=== PATIENT | male | born 1975 | race Caucasian/White ===

== ENCOUNTER 2018-11-15 16:40 | Emergency (ER) | payer MEDICAID ==
[2018-11-15] MEDS ORDERED: Acetaminophen 500 MG Tab PO ONE (17:18)
--- NOTE | 2018-11-15 17:23 | EDM.PDOC ---
ED HPI GENERAL MEDICAL PROBLEM - General Chief Complaint: Headache Stated Complaint: TREE BRANCH FELL AND HIT HIS HEAD Time Seen by Provider: 11/15/18 17:05 Source of Information: Reports: Patient History Limitations: Reports: No Limitations - History of Present Illness INITIAL COMMENTS - FREE TEXT/NARRATIVE: 42 yo male was hit in the head by a tree branch shortly before arrival. No LOC, neck pain, or vomiting, or SANTOS. Did have transient nausea at the time of injury that has resolved. Drove himself to the ER. Is not on any blood thinners. Vision and hearing are normal. Onset: Today Onset Date: 11/15/18 Onset Time: 16:00 Duration: Minutes:, Improving Location: Reports: Head Quality: Reports: Ache Severity: Mild Improves with: Reports: Other (time) Worsens with: Reports: None Context: Reports: Trauma Associated Symptoms: Reports: No Other Symptoms Treatments NEPHROLOGIST: Reports: Other (see below) (none) - Related Data Allergies Allergy/AdvReac Type Severity Reaction Status Date / Time NSAIDS (Non-Steroidal Allergy Seizure Verified 11/15/18 17:19 Anti-Inflamma Penicillins Allergy Bleeding Verified 11/15/18 17:19 Home Meds: Home Meds Albuterol [Ventolin HFA] 11/15/18 [History] ED ROS GENERAL - Review of Systems Review Of Systems: See Below Constitutional: Reports: No Symptoms HEENT: Reports: No Symptoms Respiratory: Reports: No Symptoms Cardiovascular: Reports: No Symptoms Endocrine: Reports: No Symptoms GI/Abdominal: Reports: No Symptoms, Nausea (resolved) : Reports: No Symptoms Musculoskeletal: Denies: Neck Pain Skin: Reports: No Symptoms Neurological: Reports: Headache (mild). Denies: Confusion, Dizziness, Syncope, Difficulty Walking Psychiatric: Reports: No Symptoms ED EXAM, HEAD INJURY - Physical Exam Exam: See Below Exam Limited By: No Limitations General Appearance: Alert, WD/WN, No Apparent Distress Head: Atraumatic, Normocephalic Nexus Criteria: No: Posterior, Midline Cervical Tenderness, Evidence of Intoxication, Altered Level of Consciousness, Focal Neurological Deficit, Painful Distraction Injuries Eyes: Bilateral Eye: EOMI, Normal Inspection, PERRL Ears: Normal External Exam, Normal Canal, Hearing Grossly Normal, Normal TMs Nose: Normal Inspection, No Blood Throat/Mouth: Normal Inspection, Normal Lips, Normal Oropharynx, Normal Voice, No Airway Compromise Neck: Non-Tender, Full Range of Motion, Normal Alignment, Normal Inspection Respiratory: No Respiratory Distress, Lungs Clear, Normal Breath Sounds, No Accessory Muscle Use Cardiovascular: Regular Rate, Rhythm, No Edema GI/Abdominal Exam: Normal Bowel Sounds, Soft, Non-Tender, No Distention Extremities: Normal Inspection, Normal Range of Motion, Non-Tender, No Pedal Edema Neurologic: fiberglass laminator II-XII nml As Tested, No Motor/Sensory Deficits, Alert, Normal Mood/Affect, Oriented x 3 Skin: Normal Color, Warm/Dry - Sarah Coma Score Best Eye Response (Sarah): (4) Open Spontaneously Best Verbal Response ([place]): (5) Oriented Best Motor Response (Sarah): (6) Obeys Commands Sarah Total: 15 Course - Vital Signs Last Recorded V/S: Last Vital Signs Temp 35.9 C 11/15/18 17:08 Pulse 93 11/15/18 17:08 Resp 16 11/15/18 17:08 BP 143/81 H 11/15/18 17:08 Pulse Ox 97 11/15/18 17:08 - Orders/Labs/Meds Orders: Active Orders 24 hr Category Date Time Status Acetaminophen [Tylenol Extra Strength] Med 11/15/18 17:18 Once 1,000 mg PO ONETIME ONE Departure - Departure Time of Disposition: 17:22 Disposition: Home, Self-Care 01 Condition: Good Clinical Impression: Mild concussion Qualifiers: Encounter type: initial encounter Loss of consciousness presence/duration: without LOC Qualified Code(s): S06.0X0A - Concussion without loss of consciousness, initial encounter - Discharge Information *PRESCRIPTION DRUG MONITORING PROGRAM REVIEWED*: No *COPY OF PRESCRIPTION DRUG MONITORING REPORT IN PATIENT MARITZA: No Instructions: Head Injury, Adult Referrals: PCP,None [Primary Care Provider] - Additional Instructions: Acetaminophen as needed. Rest over the weekend. Recheck if worse. - My Orders Last 24 Hours: My Active Orders 11/15/18 17:18 Acetaminophen [Tylenol Extra Strength] 1,000 mg PO ONETIME ONE - Assessment/Plan Last 24 Hours: My Active Orders 11/15/18 17:18 Acetaminophen [Tylenol Extra Strength] 1,000 mg PO ONETIME ONE
== END 2018-11-15 17:36 | disposition home or self-care (01) ==
LOC: JP.ED 16:40
DX: S06.0X0A Concussion without loss of consciousness, initial encounter (principal); R40.2410 Glasgow coma scale score 13-15, unspecified time; Z88.0 Allergy status to penicillin; Z88.8 Allergy status to other drugs, medicaments and biological substances; W22.8XXA Striking against or struck by other objects, initial encounter
CPT/HCPCS: 99283; A9270

== ENCOUNTER 2019-03-20 12:42 | Emergency (ER) | payer MEDICAID ==
--- NOTE | 2019-03-20 13:17 | EDM.PDOC ---
ED HPI GENERAL MEDICAL PROBLEM - General Chief Complaint: Upper Extremity Injury/Pain Stated Complaint: INJURED RT ELBOW Time Seen by Provider: 03/20/19 12:48 Source of Information: Reports: Patient History Limitations: Reports: No Limitations - History of Present Illness INITIAL COMMENTS - FREE TEXT/NARRATIVE: 43-year-old male is a right elbow injury after being struck hard on the medial aspect of the right elbow by a sy that slipped. He has significant pain down the distribution of the ulnar nerve and tingling in his finger. He has what appears to be slight swelling but no deformity of the elbow. He is pale and diaphoretic and very anxious and uncomfortable. No other injury. Onset: Sudden Duration: Hour(s): (Within the last hour) Location: Reports: Upper Extremity, Right Associated Symptoms: Reports: Diaphoresis - Related Data Allergies Allergy/AdvReac Type Severity Reaction Status Date / Time NSAIDS (Non-Steroidal Allergy Seizure Verified 03/20/19 13:22 Anti-Inflamma Penicillins Allergy Bleeding Verified 03/20/19 13:22 Home Meds: Home Meds Albuterol [Ventolin HFA] 11/15/18 [History] Past Medical History - Past Surgical History GI Surgical History: Reports: Hernia, Inguinal Review of Systems - Review of Systems Review Of Systems: See Below Constitutional: Denies: Fever Respiratory: Reports: Other (Hyperventilating from anxiety and pain) Cardiovascular: Denies: Chest Pain, Irregular Heart Rate Skin: Reports: Other (There is a superficial abrasion and bruise on the medial aspect of the right elbow) Neurological: Reports: Paresthesia (Down the ulnar distribution of the right lower arm) ED EXAM, GENERAL - Physical Exam Exam: See Below Exam Limited By: No Limitations General Appearance: Alert, Moderate Distress Head: Atraumatic Respiratory/Chest: No Respiratory Distress Extremities: Other (Exam is otherwise limited to the upper extremities. Patient has an abrasion and slight swelling over the medial aspect of the right elbow. It's very tender to palpation but there is no crepitus or deformity. He is able to move his small finger and feels sensation but it is "tingly".) Course - Vital Signs Last Recorded V/S: Last Vital Signs Temp 97.6 F 03/20/19 13:01 Pulse 79 03/20/19 13:01 Resp 25 H 03/20/19 13:01 BP 109/65 08/02/19 13:01 Pulse Ox 100 03/20/19 13:01 - Orders/Labs/Meds Orders: Active Orders 24 hr Category Date Time Status DME for Discharge [COMM] Stat Oth 03/20/19 13:25 Ordered Meds: Medications Discontinued Medications Generic Name Dose Route Start Last Admin Trade Name Estefanía PRN Reason Stop Dose Admin Acetaminophen 1,000 mg 03/20/19 13:18 03/20/19 13:24 Tylenol Extra Strength PO 03/20/19 13:19 1,000 mg ONETIME ONE Administration Bacitracin 1 dose 03/20/19 13:28 03/20/19 14:25 Bacitracin Oint 1 Gm TOP 03/20/19 13:29 1 dose ONETIME ONE Administration - Radiology Interpretation Free Text/Narrative:: Patient was given 1000 mg of oral Tylenol, an x-ray of the right elbow was obtained which was normal. He was placed in a sling, encouraged to ice the elbow down through the weekend and increase activity as tolerated. Recheck next week if he is still having significant pain or persistent numbness or weakness of the forearm. - Re-Assessments/Exams Free Text/Narrative Re-Assessment/Exam: 03/20/19 13:24 Patient is very sensitive or allergic to numerous pain medications, he can only take "Tylenol". He was given 1000 mg of oral Tylenol and a portable right elbow x-ray was obtained. This appears normal, a small amount of bacitracin was applied to the abrasion along with a bandage and he was placed in a sling. Departure - Departure Time of Disposition: 14:35 Disposition: Home, Self-Care 01 Clinical Impression: Contusion of right elbow Qualifiers: Encounter type: initial encounter Qualified Code(s): S50.01XA - Contusion of right elbow, initial encounter - Discharge Information Instructions: Elbow Contusion Referrals: PCP,None [Primary Care Provider] - Forms: ED Department Discharge Care Plan Goals: Sling on for comfort and continue with a regular dose of Tylenol. Ice to the area may be beneficial. Increase activity as tolerated and recheck early next week if not improving satisfactorily. - My Orders Last 24 Hours: My Active Orders 03/20/19 13:25 DME for Discharge [COMM] Stat - Assessment/Plan Last 24 Hours: My Active Orders 03/20/19 13:25 DME for Discharge [COMM] Stat
[2019-03-20] MEDS ORDERED: Acetaminophen 500 MG Tab PO ONE (13:18)
[2019-03-20] MEDS ORDERED: Bacitracin Oint 1 GM U/D Packet TOP ONE (13:28)
--- NOTE | 2019-03-20 13:52 | CRLCR ---
Indication: Right elbow injury Technique: Two views right elbow Comparison: None Findings: Bones: Alignment is normal. No fractures or bone lesions. Joint spaces: Unremarkable. Soft tissues: Unremarkable. Impression: Negative. Dictated by Tameka Holm MD @ Mar 20 2019 1:50PM Signed by Dr. Tameka Holm @ Mar 20 2019 1:50PM
== END 2019-03-20 14:36 | disposition home or self-care (01) ==
LOC: JP.ED 12:42
DX: S50.01XA Contusion of right elbow, initial encounter (principal); Z88.6 Allergy status to analgesic agent; Z88.0 Allergy status to penicillin; Z79.899 Other long term (current) drug therapy; W22.8XXA Striking against or struck by other objects, initial encounter
CPT/HCPCS: 73070; 99283; A9270

== ENCOUNTER 2020-08-21 04:20 | Emergency (ER) | payer MEDICAID ==
[2020-08-21] MEDS ORDERED: Ondansetron 4 MG/2 ML SDV IVPUSH ONE (05:04)
[2020-08-21] MEDS ORDERED: Sodium Chloride 0.9% 1,000 ML IV ONE (05:04)
[2020-08-21] MEDS ORDERED: Sodium Chloride 0.9% 10 ML Syringe FLUSH PRN (05:04)
--- NOTE | 2020-08-21 05:10 | EDM.PDOC ---
ED HPI GENERAL MEDICAL PROBLEM - General Chief Complaint: Abdominal Pain Stated Complaint: ABD PAIN Time Seen by Provider: 08/21/20 04:56 Source of Information: Reports: Patient History Limitations: Reports: No Limitations - History of Present Illness INITIAL COMMENTS - FREE TEXT/NARRATIVE: Esequiel is a 44-year-old male presenting to the ED for evaluation of repeated vomiting and diarrhea accompanied by epigastric discomfort. Patient states that his symptoms started about 2100 hrs. last night. The patient has had 4-5 episodes of emesis with the last several having blood present in them. He denies any coffee-ground emesis. His symptoms that started initially with a couple episodes of diarrhea. He is not sure if he received food poisoning after eating homemade beef stroganoff prepared by one of his friends wives with a pressure cooker. He is not sure if any of them have been ill. He has had diaphoresis and chills but denies any fever. He denies any sore throat or difficulty swallowing. He is complaining out of 8 out of 10 epigastric pain between the epigastrium and umbilicus. He has been having increasing episodes of bloating for which he has been taking simethicone and is wondering if this is what is making him nauseous. He denies any urinary symptoms, shortness of breath or cough, or chest pain. upper abd Pain Score (Numeric/FACES): 10 - Related Data Allergies Allergy/AdvReac Type Severity Reaction Status Date / Time coconut oil Allergy Airway Verified 08/21/20 04:44 Tightness NSAIDS (Non-Steroidal Allergy Seizure Verified 03/20/19 13:22 Anti-Inflamma Penicillins Allergy Bleeding Verified 03/20/19 13:22 sunflower oil Allergy Airway Verified 08/21/20 04:44 Tightness aloe vera Allergy Hives Uncoded 08/21/20 04:44 apples Allergy Anaphylactic Uncoded 08/21/20 04:44 Shock celery Allergy Airway Uncoded 08/21/20 04:44 Tightness cherries Allergy Airway Uncoded 08/21/20 04:44 Tightness peaches Allergy Airway Uncoded 08/21/20 04:44 Tightness peanuts Allergy Anaphylactic Uncoded 08/21/20 04:44 Shock pumpkins Allergy Airway Uncoded 08/21/20 04:44 Tightness Home Meds: Home Meds Albuterol [Ventolin HFA] 1 - 2 puff INH Q4H PRN 11/15/18 [History] Simethicone [Gas-X] 125 mg PO Q6H PRN 08/21/20 [History] Past Medical History Respiratory History: Reports: Asthma Gastrointestinal History: Reports: Bowel Obstruction, GERD Neurological History: Reports: Concussion, Head Trauma, Seizure Psychiatric History: Reports: Anxiety - Infectious Disease History Infectious Disease History: Reports: Chicken Pox, Influenza - Past Surgical History GI Surgical History: Reports: Hernia, Inguinal Musculoskeletal Surgical History: Reports: Other (See Below) Other Musculoskeletal Surgeries/Procedures:: 2019 elbow surgery Social & Family History - Tobacco Use Tobacco Use Status *Q: Former Tobacco User Used Tobacco, but Quit: Yes Month/Year Tobacco Last Used: 07/2019 - Caffeine Use Caffeine Use: Reports: None - Recreational Drug Use Recreational Drug Use: No ED ROS GENERAL - Review of Systems Review Of Systems: See Below Constitutional: Reports: Chills, Diaphoresis HEENT: Reports: No Symptoms Respiratory: Reports: No Symptoms Cardiovascular: Reports: No Symptoms Endocrine: Reports: No Symptoms GI/Abdominal: Reports: Abdominal Pain (Epigastric discomfort), Diarrhea, Distension, Hematemesis (Multiple episodes of vomiting with the last couple of episodes having streaks of blood in the emesis. No coffee-ground emesis.), Nausea, Vomiting. Denies: Hematochezia, Melena : Reports: No Symptoms Musculoskeletal: Reports: No Symptoms Skin: Reports: No Symptoms Neurological: Reports: No Symptoms Psychiatric: Reports: Anxiety Hematologic/Lymphatic: Reports: No Symptoms Immunologic: Reports: No Symptoms ED EXAM, GI/ABD - Physical Exam Exam: See Below Exam Limited By: No Limitations General Appearance: Alert, Anxious, Moderate Distress Eyes: Bilateral: EOMI Throat/Mouth: Normal Inspection, Normal Lips, Normal Teeth, Normal Gums, Normal Oropharynx, Normal Voice, No Airway Compromise Head: Atraumatic, Normocephalic Neck: Normal Inspection, Supple, Non-Tender, Full Range of Motion Respiratory/Chest: No Respiratory Distress, Lungs Clear, Normal Breath Sounds, No Accessory Muscle Use, Chest Non-Tender Cardiovascular: Normal Peripheral Pulses, Regular Rate, Rhythm, No Edema, No Gallop, No JVD, No Murmur, No Rub GI/Abdominal Exam: Distended, Guarding, Tender (Epigastric), Abnormal Bowel Sounds (Diminished bowel sounds), Other (Tympany to percussion throughout the abdomen). No: Rigid, Rebound (Male) Exam: No Hernia Rectal (Males) Exam: Deferred Back Exam: Normal Inspection, Full Range of Motion, NT Extremities: Normal Inspection, Normal Range of Motion, Non-Tender, Normal Capillary Refill, No Pedal Edema Neurological: Alert, Oriented, Normal Cognition, Normal Gait, No Motor/Sensory Deficits Psychiatric: Normal Affect, Anxious Skin Exam: Warm, Dry, Intact, Normal Color, No Rash Lymphatic: No Adenopathy Course - Vital Signs Last Recorded V/S: Last Vital Signs Temp 36.7 C 08/21/20 04:48 Pulse 77 08/21/20 06:12 Resp 22 H 08/21/20 06:12 BP 146/72 H 08/21/20 06:12 Pulse Ox 97 08/21/20 06:12 - Orders/Labs/Meds Orders: Active Orders 24 hr Category Date Time Status Sodium Chloride 0.9% [Saline Flush] Med 08/21/20 05:04 Active 10 ml FLUSH ASDIRECTED PRN Saline Lock Insert [OM.PC] Routine Oth 08/21/20 05:04 Ordered Medication Orders Sodium Chloride (Saline Flush) 10 ml FLUSH ASDIRECTED PRN PRN Reason: Keep Vein Open Last Admin: 08/21/20 05:22 Dose: 10 ml Documented by: CAITLYN Labs: Laboratory Tests 08/21/20 08/21/20 Range/Units 05:19 05:19 WBC 8.5 (4.5-11.0) K/uL RBC 5.06 (4.30-5.90) M/uL Hgb 16.1 H (12.0-15.0) g/dL Hct 47.3 (40.0-54.0) % MCV 94 (80-98) fL MCH 32 H (27-31) pg MCHC 34 (32-36) % Plt Count 228 (150-400) K/uL Neut % (Auto) 79 H (36-66) % Lymph % (Auto) 16 L (24-44) % [place] % (Auto) 5 (2-6) % Eos % (Auto) 1 L (2-4) % Baso % (Auto) 0 (0-1) % Sodium 136 L (140-148) mmol/L Potassium 5.3 H (3.6-5.2) mmol/L Chloride 103 (100-108) mmol/L Carbon Dioxide 22 (21-32) mmol/L Anion Gap 16.3 H (5.0-14.0) mmol/L BUN 12 (7-18) mg/dL Creatinine 0.9 (0.8-1.3) mg/dL Est Cr Clr Drug Dosing 110.39 mL/min Estimated GFR (MDRD) > 60 (>60) Glucose 111 H (74-106) mg/dL Calcium 8.9 (8.5-10.1) mg/dL Total Bilirubin 0.6 (0.2-1.0) mg/dL AST 28 (15-37) U/L ALT 41 (12-78) U/L Alkaline Phosphatase 174 H (46-116) U/L Total Protein 7.5 (6.4-8.2) g/dL Albumin 3.8 (3.4-5.0) g/dL Globulin 3.7 H (2.3-3.5) g/dL Albumin/Globulin Ratio 1.0 L (1.2-2.2) Lipase 89 (73-393) U/L Meds: Medications Generic Name Dose Route Start Last Admin Trade Name Freq PRN Reason Stop Dose Admin Sodium Chloride 10 ml 08/21/20 05:04 08/21/20 05:22 Saline Flush FLUSH 10 ml ASDIRECTED PRN Administration Keep Vein Open Discontinued Medications Generic Name Dose Route Start Last Admin Trade Name Freq PRN Reason Stop Dose Admin Al Hydroxide/Mg Hydroxide 15 0 ml 08/21/20 06:01 08/21/20 06:05 ml/ Lidocaine HCl 15 ml PO 08/21/20 06:02 30 ml ONETIME ONE Administration Sodium Chloride 1,000 mls @ 999 mls/hr 08/21/20 05:04 08/21/20 05:19 Normal Saline IV 08/21/20 06:04 999 mls/hr .BOLUS ONE Administration Ondansetron HCl 4 mg 08/21/20 05:04 08/21/20 05:20 Zofran IVPUSH 08/21/20 05:05 4 mg ONETIME ONE Administration - Re-Assessments/Exams Free Text/Narrative Re-Assessment/Exam: 08/21/20 05:55 I reviewed the patient's labs showing a normal CBC. His comprehensive metabolic panel shows mild elevation of his potassium at 5.3 with a slight reduction in his sodium of 136. The patient's liver enzymes and lipase are normal. Given the patient's presenting complaints with epigastric pain, this is likely acute gastritis, likely due to either a viral gastroenteritis or possible food poisoning. The patient did have improvement in his nausea with the Zofran, however, he still having persistent abdominal pain so we will try a GI cocktail. Departure - Departure Time of Disposition: 06:21 Disposition: Home, Self-Care 01 Condition: Good Clinical Impression: Acute exacerbation of chronic low back pain, Colon cancer metastasized to multiple sites - Discharge Information *PRESCRIPTION DRUG MONITORING PROGRAM REVIEWED*: Yes *COPY OF PRESCRIPTION DRUG MONITORING REPORT IN PATIENT MARITZA: No Instructions: Chronic Back Pain, [id number], Colorectal Cancer Referrals: PCP,None [Primary Care Provider] - Forms: ED Department Discharge Care Plan Goals: My plan is to increase your Duragesic patch from 12.5 mcg to 50 mcg every 72 hours. I have also enclosed a prescription for ketorolac 10 mg that she can take up to 4 times a day with a snack as this can be quite hard on the stomach. You should talk to your oncologist about ongoing chronic pain management as it does not appear the oxycodone is very helpful. Should you experience another exacerbation of pain, do not hesitate to come back to the ER for additional parental narcotic medication. Sepsis Event Note (ED) - Evaluation Sepsis Screening Result: No Definite Risk - Focused Exam Vital Signs: Vital Signs Temp Pulse Resp BP Pulse Ox 08/21/20 06:12 77 22 H 146/72 H 97 08/21/20 04:48 36.7 C 72 22 H 136/74 97 - Problem List & Annotations (1) Acute exacerbation of chronic low back pain SNOMED Code(s): 801046767 Code(s): M54.5 - LOW BACK PAIN; G89.29 - OTHER CHRONIC PAIN Status: Chronic Priority: Medium Current Visit: Yes (2) Colon cancer metastasized to multiple sites SNOMED Code(s): 235525735, 222310480 Code(s): C18.9 - MALIGNANT NEOPLASM OF COLON, UNSPECIFIED Status: Chronic Priority: Medium Current Visit: Yes - Problem List Review Problem List Initiated/Reviewed/Updated: Yes - My Orders Last 24 Hours: My Active Orders 08/21/20 05:04 Sodium Chloride 0.9% [Saline Flush] 10 ml FLUSH ASDIRECTED PRN Saline Lock Insert [OM.PC] Routine - Assessment/Plan Last 24 Hours: My Active Orders 08/21/20 05:04 Sodium Chloride 0.9% [Saline Flush] 10 ml FLUSH ASDIRECTED PRN Saline Lock Insert [OM.PC] Routine
[2020-08-21] MEDS ORDERED: Alum Hydrox/Mag Hydrox/Simeth 15 ML, Lidocaine 2% 15 ML PO ONE ×2 (06:01)
[2020-08-21] MEDS ORDERED: Iopamidol 612 MG/ML 150 ML Bottle IV ONE (06:45)
[2020-08-21] MEDS ORDERED: Sodium Chloride 0.9% 80 ML IV SCH (06:45)
[2020-08-21] MEDS ORDERED: Pantoprazole 40 MG Vial IVPUSH ONE (07:22)
[2020-08-21] MEDS ORDERED: HYDROmorphone 0.5 MG/0.5 ML Syringe IVPUSH ONE (07:22)
--- NOTE | 2020-08-21 07:30 | CRLCT ---
INDICATION: acute epigastric pain with vomiting Indication: Acute epigastric pain with vomiting. Technique: CT of the abdomen and pelvis. 132 cc of Isovue-300 IV. Coronal/sagittal reconstruction images. Comparison: None. Findings: Lung bases: There is no pleural or pericardial effusion. The heart size is normal. There is no acute airspace disease or basilar pneumothorax. Abdomen/pelvis: 8 the liver morphology is non cirrhotic. There is no solid hepatic mass. There is a benign cyst in segment IV of the liver, which measures 15 millimeters on image 30, series 2. No radiopaque gallstone. Low-dense lesion in the right hepatic lobe on image 25, series 2, too small to further characterize, likely a benign cyst. The spleen size is normal. No adrenal mass. No hydronephrosis. No perinephric fluid collection. Nephrograms are symmetric. There is no pancreatic mass. There is no pancreatic duct dilation. There is no glandular atrophy. Small sliding-type hiatal hernia. There is no gastric or duodenal wall thickening by CT. Prostate and urinary bladder are normal. There is no free intraperitoneal air. There is no evidence for a small bowel or colonic obstruction. No mucosal hyper enhancement. The appendix appears dilated. It measures up to 17 millimeters in luminal dimension. This is well seen on image 40 of series 3. There is a paucity of periappendiceal inflammatory stranding. There is no drainable fluid collection. No pelvic sidewall lymphadenopathy. Retroperitoneum and gastrohepatic ligament are normal. Visceral artery branches are widely patent. Portal vein, splenic vein, and SMV are patent. The bone windows demonstrate a small sclerotic lesion in the right proximal femur. This is most likely a benign bone island. No suspicious bone lesions are seen by CT. The vertebral body heights are maintained on sagittal reconstruction images. Impression: 1. No findings are seen to explain epigastric abdominal pain. 2. There is no gastric or duodenal wall thickening. 3. Uniform enhancement of the pancreas. No peripancreatic fluid collection. 4. The appendix is dilated. However, there is a paucity of periappendiceal inflammatory changes. There is no wall thickening within the cecum or the terminal ileum. The differential diagnosis includes a mucocele of the appendix. Consider outpatient surgical consultation. Acute appendicitis is not favored by CT. 5. No abdominal or pelvic lymphadenopathy. 6. Report called to Dr. Zamorano, Emergency Department, 08/21/20, 0725 hours. Dictated by Robert Hubbard MD @ 08/21/2020 7:29:19 AM Please note that all CT scans at this facility use dose modulation, iterative reconstruction, and/or weight-based dosing when appropriate to reduce radiation dose to as low as reasonably achievable. Dictated by: Robert Hubbard MD @ 08/21/2020 07:29:39 (Electronically Signed)
== END 2020-08-21 10:07 | disposition home or self-care (01) ==
LOC: JP.ED 04:20
DX: C18.9 Malignant neoplasm of colon, unspecified (principal); M54.5 Low back pain; G89.29 Other chronic pain; K52.9 Noninfective gastroenteritis and colitis, unspecified; J45.909 Unspecified asthma, uncomplicated; Z87.891 Personal history of nicotine dependence; Z91.018 Allergy to other foods; Z88.0 Allergy status to penicillin; Z88.8 Allergy status to other drugs, medicaments and biological substances; Z91.010 Allergy to peanuts
CPT/HCPCS: 36415; 74177; 80053; 83690; 85025; 96374; 96375; 99284; A9270; C9113; J1170; J2405; J7030; Q9967

== ENCOUNTER 2021-03-24 11:07 | Inpatient (IN) | payer MEDICAID ==
--- NOTE | 2021-03-24 11:59 | EDM.PDOC ---
ED HPI GENERAL MEDICAL PROBLEM - General Chief Complaint: Abdominal Pain Stated Complaint: LOWER RIGHT ABDOMINAL/BACK PAIN Time Seen by Provider: 03/24/21 11:59 Source of Information: Reports: Patient, RN Notes Reviewed History Limitations: Reports: No Limitations - History of Present Illness INITIAL COMMENTS - FREE TEXT/NARRATIVE: Esequiel presents today for complaints of RLQ abdominal pain that started early tis morning at 0200 with cramping, gas like feeling. He woke up again at [id number] had a normal consistency bowel movement. Pain continued and worsened at 0800. He had another bowel movement which was more soft. He reports pain is much worse then any pain he has had in the past and is now 9/10. He denies nausea, epigastric pain, heart burn or acid reflux. He denies fever, chills, nausea, vomiting, change in bladder function or other concerns. Last food intake 03/23/2021 at 2030 - pears. He states he ate pork for his last meal yesterday. Last water intake 03/24/2021 at 0830 today. Recent C. diff. infection 2 months ago. He reports taking all antibiotics as directed. 02/02/2021 Patient to 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 He had one dose of zosyn and elected to go to [facility] for medical care. He was admitted to [facility] on 02/02/2021given ceftriaxone, flagyl and discharged on 02/03/2021 and placed on oral vancomycin. He then saw Dr. Fam in clinic on 02/10/2021 and was advised to have a colonoscopy and lap appendectomy. The patient had a family emergency and his Grandmother and he was not able to schedule procedure. He denies use of alcohol or other illicit drugs. Right Lower Abdomen Pain Score (Numeric/FACES): 10 - Related Data Allergies Allergy/AdvReac Type Severity Reaction Status Date / Time ciprofloxacin [From Cipro] Allergy Severe Anaphylactic Verified 03/24/21 14:31 Shock coconut oil Allergy Severe Airway Verified 03/24/21 14:31 Tightness sunflower oil Allergy Severe Airway Verified 03/24/21 14:31 Tightness NSAIDS (Non-Steroidal Allergy Seizure Verified 03/24/21 11:47 Anti-Inflamma Penicillins Allergy Bleeding Verified 03/24/21 11:47 apples Allergy Severe Anaphylactic Uncoded 03/24/21 14:31 Shock celery Allergy Severe Airway Uncoded 03/24/21 14:31 Tightness cherries Allergy Severe Airway Uncoded 03/24/21 14:31 Tightness peaches Allergy Severe Airway Uncoded 03/24/21 14:31 Tightness peanuts Allergy Severe Anaphylactic Uncoded 03/24/21 14:31 Shock pumpkins Allergy Severe Airway Uncoded 03/24/21 14:31 Tightness aloe vera Allergy Hives Uncoded 03/24/21 11:47 Home Meds: Home Meds Albuterol [Ventolin HFA] 1 - 2 puff INH Q4H PRN 11/15/18 [History] Clotrimazole [Lotrimin AF 1% Crm] 1 gm TOP ASDIRECTED 03/24/21 [History] Hydrocortisone 1 gm TOP ASDIRECTED 03/24/21 [History] busPIRone [Buspar] 10 mg PO BID 03/24/21 [History] traZODone HCl [Trazodone HCl] 50 mg PO BEDTIME 03/24/21 [History] Past Medical History Respiratory History: Reports: Asthma Gastrointestinal History: Reports: Bowel Obstruction, GERD Neurological History: Reports: Concussion, Head Trauma, Seizure Psychiatric History: Reports: Anxiety - Infectious Disease History Infectious Disease History: Reports: C-Difficile, Chicken Pox, Influenza - Past Surgical History GI Surgical History: Reports: Hernia, Inguinal Musculoskeletal Surgical History: Reports: Other (See Below) Other Musculoskeletal Surgeries/Procedures:: 2019 elbow surgery Social & Family History - Tobacco Use Tobacco Use Status *Q: Never Tobacco User - Caffeine Use Caffeine Use: Reports: None ED ROS GENERAL - Review of Systems Review Of Systems: See Below Constitutional: Reports: Decreased Appetite. Denies: Fever, Chills, Malaise, Weakness, Fatigue, Diaphoresis HEENT: Reports: No Symptoms Respiratory: Reports: No Symptoms Cardiovascular: Reports: No Symptoms Endocrine: Reports: No Symptoms GI/Abdominal: Reports: Abdominal Pain, Decreased Appetite, Distension, Flatus. Denies: Black Stool, Bloody Stool, Constipation, Diarrhea, Difficulty Swallowing, Hematemesis, Hematochezia, Nausea, Stool Incontinence, Vomiting : Reports: No Symptoms Musculoskeletal: Reports: No Symptoms Skin: Reports: No Symptoms Neurological: Reports: No Symptoms Psychiatric: Reports: No Symptoms Hematologic/Lymphatic: Reports: No Symptoms Immunologic: Reports: No Symptoms ED EXAM, GI/ABD - Physical Exam Exam: See Below Exam Limited By: No Limitations General Appearance: Alert, WD/WN, Moderate Distress (laying flat on ER stretcher, eyes closed, in pain) Eyes: Bilateral: Normal Appearance, EOMI Ears: Normal External Exam, Normal Canal, Hearing Grossly Normal, Normal TMs Nose: Normal Inspection, Normal Mucosa, No Blood Throat/Mouth: Normal Inspection, Normal Lips, Normal Gums, Normal Oropharynx, Normal Voice, No Airway Compromise. No: Normal Teeth (multiple teeth with decay noted) Head: Atraumatic, Normocephalic Neck: Normal Inspection, Supple, Non-Tender, Full Range of Motion. No: Lymphadenopathy (R), Lymphadenopathy (L) Respiratory/Chest: No Respiratory Distress, Lungs Clear, Normal Breath Sounds, No Accessory Muscle Use, Chest Non-Tender. No: Crackles, Rales, Rhonchi, Wheezing, Stridor, Retractions, Splinting Cardiovascular: Normal Peripheral Pulses, Regular Rate, Rhythm, No Edema, No Gallop, No Murmur, No Rub GI/Abdominal Exam: Soft, Guarding, Rebound, Tender. No: Distended, Rigid, Hernia, Hepatomegaly, Splenomegaly (Male) Exam: Deferred Rectal (Males) Exam: Deferred Back Exam: Normal Inspection, Full Range of Motion. No: CVA Tenderness (R), CVA Tenderness (L), Muscle Spasm, Paraspinal Tenderness, Vertebral Tenderness Extremities: Normal Inspection, Normal Range of Motion, Non-Tender, No Pedal Edema, Normal Capillary Refill Neurological: Alert, Oriented, Normal Cognition, No Motor/Sensory Deficits Psychiatric: Normal Affect, Normal Mood Skin Exam: Warm, Dry, Intact, Normal Color, No Rash Lymphatic: No Adenopathy Course - Vital Signs Last Recorded V/S: Last Vital Signs Temp 37.4 C 03/24/21 16:01 Pulse 92 03/24/21 16:01 Resp 16 03/24/21 16:01 BP 148/76 H 03/24/21 16:01 Pulse Ox 97 03/24/21 16:01 - Orders/Labs/Meds Orders: Medication Orders Acetaminophen (Acetaminophen 325 Mg Tab) 650 mg PO Q4H PRN PRN Reason: Pain (Mild 1-3)/fever Albuterol (Albuterol 8 Gm Inhaler) 0 gm INH Q4H PRN PRN Reason: wheezing Buspirone HCl (Buspirone 10 Mg Tab) 10 mg PO BID [facility] Clotrimazole (Clotrimazole 1% Crm 30 Gm Tube) 1 gm TOP ASDIRECTED MEDINA Ropivacaine 40 ml/Dexamethasone 8 mg/Epinephrine HCl 0.4 mg/ Sodium Chloride 37.6 ml 0 ml NERVRT ASDIRECTED MEDINA Hydrocortisone (Hydrocortisone 2.5% Crm 30 Gm Tube) 1 gm TOP ASDIRECTED MEDINA Hydromorphone HCl (Hydromorphone 0.5 Mg/0.5 Ml Syringe) 0.5 mg IVPUSH Q2H PRN PRN Reason: Pain Dextrose/Lactated Ringer's (Dextrose 5%-Lactated Ringers) 1,000 mls @ 125 mls/hr IV ASDIRECTED MEDINA Meropenem 1 gm/ Sodium (Chloride) 100 mls @ 200 mls/hr IV Q8H [facility] Ondansetron HCl (Ondansetron 4 Mg/2 Ml Sdv) 4 mg IV Q4H PRN PRN Reason: Nausea/Vomiting Sodium Chloride (Sodium Chloride 0.9% 10 Ml Syringe) 10 ml FLUSH ASDIRECTED PRN PRN Reason: Keep Vein Open Trazodone HCl (Trazodone 50 Mg Tab) 50 mg PO BEDTIME [facility] Labs: Laboratory Tests 03/24/21 03/24/21 03/24/21 Range/Units 12:29 12:29 13:09 WBC 9.0 (4.5-11.0) K/uL RBC 5.01 (4.30-5.90) M/uL Hgb 15.6 H (12.0-15.0) g/dL Hct 46.3 (40.0-54.0) % MCV 92 (80-98) fL MCH 31 (27-31) pg MCHC 34 (32-36) % Plt Count 255 (150-400) K/uL Neut % (Auto) 84.2 H (36-66) % Lymph % (Auto) 9.3 L (24-44) % [place] % (Auto) 6.2 H (2-6) % Eos % (Auto) 0.2 L (2-4) % Baso % (Auto) 0.1 (0-1) % Sodium 138 L (140-148) mmol/L Potassium 4.4 (3.6-5.2) mmol/L Chloride 103 (100-108) mmol/L Carbon Dioxide 24 (21-32) mmol/L Anion Gap 15.4 H (5.0-14.0) mmol/L BUN 15 (7-18) mg/dL Creatinine 1.0 (0.8-1.3) mg/dL Est Cr Clr Drug Dosing 104.31 mL/min Estimated GFR (MDRD) > 60 (>60) Glucose 96 (74-106) mg/dL Calcium 8.7 (8.5-10.1) mg/dL Total Bilirubin 0.5 (0.2-1.0) mg/dL AST 19 (15-37) U/L ALT 37 (12-78) U/L Alkaline Phosphatase 170 H (46-116) U/L C-Reactive Protein 0.75 H (0.0-0.3) mg/dL Total Protein 7.6 (6.4-8.2) g/dL Albumin 3.8 (3.4-5.0) g/dL Globulin 3.8 H (2.3-3.5) g/dL Albumin/Globulin Ratio 1.0 L (1.2-2.2) Urine Color Yellow (YELLOW) Urine Appearance Clear (CLEAR) Urine pH 5.5 (5.0-8.0) Ur Specific [place] 1.010 (1.008-1.030) Urine Protein Negative (NEGATIVE) mg/dL Urine Glucose (UA) Negative (NEGATIVE) mg/dL Urine Ketones Trace H (NEGATIVE) mg/dL Urine Occult Blood Negative (NEGATIVE) Urine Nitrite Negative (NEGATIVE) Urine Bilirubin Negative (NEGATIVE) Urine Urobilinogen 0.2 (0.2-1.0) EU/dL Ur Leukocyte Esterase Negative (NEGATIVE) Urine RBC 0-5 (0-5) Urine WBC 0-5 (0-5) Ur Epithelial Cells Not seen Amorphous Sediment Not seen Urine Bacteria Not seen Urine Mucus Rare SARS CoV-2 RNA Rapid BUFFY 03/24/21 Range/Units 14:22 WBC (4.5-11.0) K/uL RBC (4.30-5.90) M/uL Hgb (12.0-15.0) g/dL Hct (40.0-54.0) % MCV (80-98) fL MCH (27-31) pg MCHC (32-36) % Plt Count (150-400) K/uL Neut % (Auto) (36-66) % Lymph % (Auto) (24-44) % [place] % (Auto) (2-6) % Eos % (Auto) (2-4) % Baso % (Auto) (0-1) % Sodium (140-148) mmol/L Potassium (3.6-5.2) mmol/L Chloride (100-108) mmol/L Carbon Dioxide (21-32) mmol/L Anion Gap (5.0-14.0) mmol/L BUN (7-18) mg/dL Creatinine (0.8-1.3) mg/dL Est Cr Clr Drug Dosing mL/min Estimated GFR (MDRD) (>60) Glucose (74-106) mg/dL Calcium (8.5-10.1) mg/dL Total Bilirubin (0.2-1.0) mg/dL AST (15-37) U/L ALT (12-78) U/L Alkaline Phosphatase (46-116) U/L C-Reactive Protein (0.0-0.3) mg/dL Total Protein (6.4-8.2) g/dL Albumin (3.4-5.0) g/dL Globulin (2.3-3.5) g/dL Albumin/Globulin Ratio (1.2-2.2) Urine Color (YELLOW) Urine Appearance (CLEAR) Urine pH (5.0-8.0) Ur Specific [place] (1.008-1.030) Urine Protein (NEGATIVE) mg/dL Urine Glucose (UA) (NEGATIVE) mg/dL Urine Ketones (NEGATIVE) mg/dL Urine Occult Blood (NEGATIVE) Urine Nitrite (NEGATIVE) Urine Bilirubin (NEGATIVE) Urine Urobilinogen (0.2-1.0) EU/dL Ur Leukocyte Esterase (NEGATIVE) Urine RBC (0-5) Urine WBC (0-5) Ur Epithelial Cells Amorphous Sediment Urine Bacteria Urine Mucus SARS CoV-2 RNA Rapid BUFFY Negative Patient lab work reviewed, normal WBC with neutrophilia, CRP 0.75. Meds: Medications Generic Name Dose Route Start Last Admin Trade Name Freq PRN Reason Stop Dose Admin Acetaminophen 650 mg 08/06/21 16:19 Acetaminophen 325 Mg Tab PO Q4H PRN Pain (Mild 1-3)/fever Albuterol 0 gm 03/24/21 16:19 Albuterol 8 Gm Inhaler INH Q4H PRN wheezing Buspirone HCl 10 mg 03/24/21 21:00 Buspirone 10 Mg Tab PO BID [facility]INA Clotrimazole 1 gm 03/24/21 16:19 Clotrimazole 1% Crm 30 Gm Tube TOP ASDIRECTED [facility]INA Ropivacaine 40 ml/ 0 ml 03/25/21 07:30 Dexamethasone 8 mg/ NERVRT Epinephrine HCl 0.4 mg/ Sodium ASDIRECTED MEDINA Chloride 37.6 ml Hydrocortisone 1 gm 03/24/21 16:19 Hydrocortisone 2.5% Crm 30 Gm Tube TOP ASDIRECTED MEDINA Hydromorphone HCl 0.5 mg 03/24/21 16:19 Hydromorphone 0.5 Mg/0.5 Ml Syringe IVPUSH Q2H PRN Pain Dextrose/Lactated Ringer's 1,000 mls @ 125 mls/hr 03/24/21 16:19 Dextrose 5%-Lactated Ringers IV ASDIRECTED MEDINA Meropenem 1 gm/ Sodium 100 mls @ 200 mls/hr 03/25/21 14:00 Chloride IV Q8H [facility] Ondansetron HCl 4 mg 03/24/21 16:19 Ondansetron 4 Mg/2 Ml Sdv IV Q4H PRN Nausea/Vomiting Sodium Chloride 10 ml 03/24/21 16:19 Sodium Chloride 0.9% 10 Ml Syringe FLUSH ASDIRECTED PRN Keep Vein Open Trazodone HCl 50 mg 03/24/21 21:00 Trazodone 50 Mg Tab PO BEDTIME [facility] Discontinued Medications Generic Name Dose Route Start Last Admin Trade Name Freq PRN Reason Stop Dose Admin Fentanyl 15 mcg 03/24/21 14:46 03/24/21 15:02 Fentanyl 100 Mcg/2 Ml Sdv IVPUSH 03/24/21 14:47 15 mcg ONETIME ONE Administration Hydromorphone HCl 1 mg 03/24/21 12:16 03/24/21 12:32 Hydromorphone 1 Mg/Ml Syringe IVPUSH 03/24/21 12:17 1 mg ONETIME ONE Administration Hydromorphone HCl 1 mg 03/24/21 14:06 03/24/21 14:14 Hydromorphone 1 Mg/Ml Syringe IVPUSH 03/24/21 14:07 1 mg ONETIME ONE Administration Sodium Chloride 1,000 mls @ 999 mls/hr 03/24/21 12:17 03/24/21 12:35 Normal Saline IV 03/24/21 13:17 999 mls/hr .BOLUS ONE Administration Sodium Chloride 81 mls @ 3.5 mls/sec 03/24/21 12:45 03/24/21 12:56 Normal Saline IV 03/24/21 18:00 3.5 mls/sec ASDIRECTED MEDINA Administration Lactated Ringer's 1,000 mls @ 150 mls/hr 03/24/21 14:15 03/24/21 14:11 Ringers, Lactated IV 150 mls/hr ASDIRECTED MEDINA Administration Ertapenem 1 gm/ Sodium 100 mls @ 200 mls/hr 03/24/21 14:26 03/24/21 14:43 Chloride IV 03/24/21 14:55 200 mls/hr ONETIME ONE Administration Iopamidol 122 ml 03/24/21 12:39 03/24/21 12:56 Iopamidol 612 Mg/Ml 500 Ml Multipack Bottle IV 03/24/21 12:40 122 ml ONETIME ONE Administration Ketamine HCl 15 mg 03/24/21 14:46 03/24/21 15:02 Ketamine 500 Mg/5 Ml Mdv IV 03/24/21 14:47 15 mg ONETIME ONE Administration Sodium Chloride 10 ml 03/24/21 12:16 03/24/21 12:39 Sodium Chloride 0.9% 10 Ml Syringe FLUSH 10 ml ASDIRECTED PRN Administration Keep Vein Open Sodium Chloride 10 ml 03/24/21 12:39 03/24/21 12:56 Sodium Chloride 0.9% 10 Ml Syringe FLUSH 03/24/21 12:40 10 ml ONETIME ONE Administration Patient has allergy to PCN of bleeding and Ciprofloxacin of anaphylaxis. He was given zosyn, ceftriaxone, vancomycin and flagyl recently and tolerated. We will administer Invanz 1 gm IV. - Radiology Interpretation Free Text/Narrative:: CT abdomen and pelvis with IV contrast shows: Moderately dilated appendix with some wall enhancement and periappendiceal fluid suspect for acute appendicitis. The appendix was similarly dilated on August CT but without inflammatory changes. There may be underlying mucocele. CT abdomen/pelvis [place] 08/2020 CT abdomen/pelvis [place] 02/01/2021 - Re-Assessments/Exams Free Text/Narrative Re-Assessment/Exam: 03/24/21 13:[address] scan. 03/24/21 14:[address] Chew, he advises to have Dr. Swann admit patient, administer ertapenem 1gm IV every 6 hours, clear liquids then NPO tonight, manage pain, schedule laparoscopic appendectomy possible open for 729 tomorrow on 03/25/2021. Patient notified, he is in agreement with plan. Patient mother in agreement with plan. Dr. Swann notified, he agrees to admit patient. 03/24/21 14:48 Pain increased 9/10 after initial dilaudid x 2. We will try fentanyl 15mch and ketamine 15mg IV. Dr. Swann in to admit patient, he assumed care. Departure - Departure Time of Disposition: 14:38 Disposition: Admitted As Inpatient 65 Condition: Good Clinical Impression: Appendicitis, Mucocele of appendix - Discharge Information Sepsis Event Note (ED) - Evaluation Sepsis Screening Result: No Definite Risk - Focused Exam Vital Signs: Vital Signs Temp Pulse Resp BP Pulse Ox 03/24/21 11:47 36.6 C 86 15 125/88 97 03/24/21 11:38 36.6 C 86 15 125/88 97 - Assessment/Plan Assessment:: Appendicitis, Mucocele of appendix Plan: Patient will be provided ertapenem IV, pain management, hospital admission and laparoscopic appendectomy possible open for appendicitis and mucocele of appendix.
[2021-03-24] MEDS ORDERED: HYDROmorphone 1 MG/ML Syringe IVPUSH ONE ×2 (12:16→14:06)
[2021-03-24] MEDS ORDERED: Sodium Chloride 0.9% 1,000 ML IV ONE (12:17)
[2021-03-24] MEDS: Sodium Chloride 0.9% 10 ML Syringe FLUSH PRN ×2 (12:37→12:39)
[2021-03-24] MEDS ORDERED: Iopamidol 612 MG/ML 500 ML Multipack Bottle IV ONE (12:39)
[2021-03-24] MEDS ORDERED: Sodium Chloride 0.9% 10 ML Syringe FLUSH ONE (12:39)
--- NOTE | 2021-03-24 13:20 | CT ---
Abdomen Pelvis w Cont CLINICAL HISTORY: Right lower quadrant pain COMPARISON: 08/21/2020. TECHNIQUE: Transverse scans were obtained from the base of the lungs to the pubic symphysis following IV infusion of contrast.Auto dosage reduction and iterative reconstructiontechniques employed. FINDINGS: The appendix is dilated and fluid-filled. This is also seen in August 2020. There is no some generalized enhancement of the appendiceal wall. Wall thickness is just over 2 mm. This is also a change since the prior study. There is some fluid in the periappendiceal region near the tip of the cecum. There is some mild thickening of the lateral conal fascia. The lung bases are clear. The liver contains a stable subcentimeter cyst in the right lobe and the second larger cyst in the lateral segment of the left lobe, also unchanged.. The gallbladder has normal appearance. The spleen has a normal size and shape. The pancreas shows no mass or inflammatory change. The adrenal glands appear normal bilaterally . The kidneys show no mass, stones or hydronephrosis. There is a tiny stable cyst upper pole right kidney. The ureters have a normal course and caliber. The bladder has normal contour. There is some prostatic enlargement. The aorta has a normal contour. There is no suspicious retroperitoneal adenopathy. IMPRESSION: Moderately dilated appendix with some wall enhancement and periappendiceal fluid suspect for acute appendicitis. The appendix was similarly dilated on the August CT but without inflammatory changes. There may be underlying mucocele.
[2021-03-24] MEDS ORDERED: Lactated Ringers 1,000 ML IV SCH (14:15)
[2021-03-24] MEDS ORDERED: Ertapenem 1 GM in Sodium Chloride 0.9% 100 ML IV ONE (14:26)
[2021-03-24] MEDS ORDERED: fentaNYL 100 MCG/2 ML SDV IVPUSH ONE (14:46)
[2021-03-24] MEDS ORDERED: Ketamine 500 MG/5 ML MDV IV ONE (14:46)
--- NOTE | 2021-03-24 15:00 | PCM.HP.2 ---
H&P History of Present Illness - General Date of Service: 03/24/21 Admit Problem/Dx: Admission Diagnosis/Problem Admission Diagnosis/Problem Appendicitis Source of Information: Patient, Family, Provider, RN Notes Reviewed History Limitations: Reports: No Limitations - History of Present Illness Initial Comments - Free Text/Narative: Mr. Goel 45-year-old gentleman who was admitted through the emergency department with right lower quadrant abdominal pain and nausea secondary to acute appendicitis. He had been feeling well until early this morning when he noted fairly abrupt onset of right lower quadrant abdominal pain described as an intense sharp pain. This was associated with symptoms of nausea. He presented to the emergency department white blood cell count is within normal range. CT scan of the abdomen pelvis shows evidence of acute appendicitis. He otherwise has been fairly healthy denies any history of significant cardiac or pulmonary disease other than some asthma which is fairly mild. He has had no history of adverse reaction to general anesthetic and there is no family history of adverse reaction to general anesthesia. He denies any history of deep vein thrombosis or pulmonary embolism. - Related Data Allergies/Adverse Reactions: Allergies Allergy/AdvReac Type Severity Reaction Status Date / Time ciprofloxacin [From Cipro] Allergy Severe Anaphylactic Verified 03/24/21 14:31 Shock coconut oil Allergy Severe Airway Verified 03/24/21 14:31 Tightness sunflower oil Allergy Severe Airway Verified 03/24/21 14:31 Tightness NSAIDS (Non-Steroidal Allergy Seizure Verified 03/24/21 11:47 Anti-Inflamma Penicillins Allergy Bleeding Verified 03/24/21 11:47 apples Allergy Severe Anaphylactic Uncoded 03/24/21 14:31 Shock celery Allergy Severe Airway Uncoded 03/24/21 14:31 Tightness cherries Allergy Severe Airway Uncoded 03/24/21 14:31 Tightness peaches Allergy Severe Airway Uncoded 03/24/21 14:31 Tightness peanuts Allergy Severe Anaphylactic Uncoded 03/24/21 14:31 Shock pumpkins Allergy Severe Airway Uncoded 03/24/21 14:31 Tightness aloe vera Allergy Hives Uncoded 03/24/21 11:47 Home Medications: Home Meds Albuterol [Ventolin HFA] 1 - 2 puff INH Q4H PRN 11/15/18 [History] Clotrimazole [Lotrimin AF 1% Crm] 1 gm TOP ASDIRECTED 03/24/21 [History] Hydrocortisone 1 gm TOP ASDIRECTED 03/24/21 [History] busPIRone [Buspar] 10 mg PO BID 03/24/21 [History] traZODone HCl [Trazodone HCl] 50 mg PO BEDTIME 03/24/21 [History] Past Medical History Respiratory History: Reports: Asthma Gastrointestinal History: Reports: Bowel Obstruction, GERD Neurological History: Reports: Concussion, Head Trauma, Seizure Psychiatric History: Reports: Anxiety - Infectious Disease History Infectious Disease History: Reports: C-Difficile, Chicken Pox, Influenza - Past Surgical History GI Surgical History: Reports: Hernia, Inguinal Musculoskeletal Surgical History: Reports: Other (See Below) Other Musculoskeletal Surgeries/Procedures:: 2019 elbow surgery Social & Family History - Tobacco Use Tobacco Use Status *Q: Never Tobacco User - Caffeine Use Caffeine Use: Reports: None H&P Review of Systems - Review of Systems: Review Of Systems: See Below General: Reports: Malaise, Weakness, Fatigue. Denies: Fever, Chills HEENT: Reports: No Symptoms Pulmonary: Reports: No Symptoms Cardiovascular: Reports: No Symptoms, Claudication Gastrointestinal: Reports: Abdominal Pain, Nausea. Denies: Constipation, Diarrhea, Difficulty Swallowing, Distension, Hematemesis, Hematochezia, Melena, Vomiting Genitourinary: Reports: No Symptoms Musculoskeletal: Reports: No Symptoms Skin: Reports: No Symptoms Psychiatric: Reports: No Symptoms Neurological: Reports: No Symptoms Hematologic/Lymphatic: Reports: No Symptoms Immunologic: Reports: No Symptoms Exam - Exam Exam: See Below - Vital Signs Vital Signs: Last Vital Signs Temp 97.8 F 03/24/21 11:47 Pulse 86 03/24/21 11:47 Resp 15 03/24/21 11:47 BP 125/88 03/24/21 11:47 Pulse Ox 97 03/24/21 11:47 Weight: 179 lb 3.773 oz - Exam Quality Assessment: DVT Prophylaxis General: Alert, Oriented, Cooperative, Moderate Distress HEENT: Conjunctiva Clear, Hearing Intact, Normal Nasal Septum, Posterior Pharynx Clear, Pupils Equal. No: Mucosa Moist & Lacoste Neck: Supple, Trachea Midline, +2 Carotid Pulse wo Bruit Lungs: Clear to Auscultation, Normal Respiratory Effort Cardiovascular: Regular Rate, Regular Rhythm, Normal S1, Normal S2. No: Systolic Murmur, Diastolic Murmur GI/Abdominal Exam: Soft, No Organomegaly, Guarding, Tender. No: Distended, Rigid, Rebound Rectal (Males) Exam: Rectal Fissure Back Exam: Normal Inspection Extremities: Non-Tender, No Pedal Edema Skin: Warm, Dry, Intact Neurological: Cranial Nerves Intact, Strength Equal Bilateral, Normal Speech, Normal Tone, Sensation Intact. No: Focal Deficit Neuro Extensive - Mental Status: Alert, Oriented x3, Normal Mood/Affect, Normal Cognition, Memory Intact - Patient Data Lab Results Last 24 hrs: Laboratory Results - last 24 hr 03/24/21 03/24/21 03/24/21 Range/Units 12:29 12:29 13:09 WBC 9.0 (4.5-11.0) K/uL RBC 5.01 (4.30-5.90) M/uL Hgb 15.6 H (12.0-15.0) g/dL Hct 46.3 (40.0-54.0) % MCV 92 (80-98) fL MCH 31 (27-31) pg MCHC 34 (32-36) % Plt Count 255 (150-400) K/uL Neut % (Auto) 84.2 H (36-66) % Lymph % (Auto) 9.3 L (24-44) % Dale % (Auto) 6.2 H (2-6) % Eos % (Auto) 0.2 L (2-4) % Baso % (Auto) 0.1 (0-1) % Sodium 138 L (140-148) mmol/L Potassium 4.4 (3.6-5.2) mmol/L Chloride 103 (100-108) mmol/L Carbon Dioxide 24 (21-32) mmol/L Anion Gap 15.4 H (5.0-14.0) mmol/L BUN 15 (7-18) mg/dL Creatinine 1.0 (0.8-1.3) mg/dL Est Cr Clr Drug Dosing 104.31 mL/min Estimated GFR (MDRD) > 60 (>60) Glucose 96 (74-106) mg/dL Calcium 8.7 (8.5-10.1) mg/dL Total Bilirubin 0.5 (0.2-1.0) mg/dL AST 19 (15-37) U/L ALT 37 (12-78) U/L Alkaline Phosphatase 170 H (46-116) U/L C-Reactive Protein 0.75 H (0.0-0.3) mg/dL Total Protein 7.6 (6.4-8.2) g/dL Albumin 3.8 (3.4-5.0) g/dL Globulin 3.8 H (2.3-3.5) g/dL Albumin/Globulin Ratio 1.0 L (1.2-2.2) Urine Color Yellow (YELLOW) Urine Appearance Clear (CLEAR) Urine pH 5.5 (5.0-8.0) Ur Specific Vanderbilt 1.010 (1.008-1.030) Urine Protein Negative (NEGATIVE) mg/dL Urine Glucose (UA) Negative (NEGATIVE) mg/dL Urine Ketones Trace H (NEGATIVE) mg/dL Urine Occult Blood Negative (NEGATIVE) Urine Nitrite Negative (NEGATIVE) Urine Bilirubin Negative (NEGATIVE) Urine Urobilinogen 0.2 (0.2-1.0) EU/dL Ur Leukocyte Esterase Negative (NEGATIVE) Urine RBC 0-5 (0-5) Urine WBC 0-5 (0-5) Ur Epithelial Cells Not seen Amorphous Sediment Not seen Urine Bacteria Not seen Urine Mucus Rare SARS CoV-2 RNA Rapid BUFFY 03/24/21 Range/Units 14:22 WBC (4.5-11.0) K/uL RBC (4.30-5.90) M/uL Hgb (12.0-15.0) g/dL Hct (40.0-54.0) % MCV (80-98) fL MCH (27-31) pg MCHC (32-36) % Plt Count (150-400) K/uL Neut % (Auto) (36-66) % Lymph % (Auto) (24-44) % Dale % (Auto) (2-6) % Eos % (Auto) (2-4) % Baso % (Auto) (0-1) % Sodium (140-148) mmol/L Potassium (3.6-5.2) mmol/L Chloride (100-108) mmol/L Carbon Dioxide (21-32) mmol/L Anion Gap (5.0-14.0) mmol/L BUN (7-18) mg/dL Creatinine (0.8-1.3) mg/dL Est Cr Clr Drug Dosing mL/min Estimated GFR (MDRD) (>60) Glucose (74-106) mg/dL Calcium (8.5-10.1) mg/dL Total Bilirubin (0.2-1.0) mg/dL AST (15-37) U/L ALT (12-78) U/L Alkaline Phosphatase (46-116) U/L C-Reactive Protein (0.0-0.3) mg/dL Total Protein (6.4-8.2) g/dL Albumin (3.4-5.0) g/dL Globulin (2.3-3.5) g/dL Albumin/Globulin Ratio (1.2-2.2) Urine Color (YELLOW) Urine Appearance (CLEAR) Urine pH (5.0-8.0) Ur Specific Vanderbilt (1.008-1.030) Urine Protein (NEGATIVE) mg/dL Urine Glucose (UA) (NEGATIVE) mg/dL Urine Ketones (NEGATIVE) mg/dL Urine Occult Blood (NEGATIVE) Urine Nitrite (NEGATIVE) Urine Bilirubin (NEGATIVE) Urine Urobilinogen (0.2-1.0) EU/dL Ur Leukocyte Esterase (NEGATIVE) Urine RBC (0-5) Urine WBC (0-5) Ur Epithelial Cells Amorphous Sediment Urine Bacteria Urine Mucus SARS CoV-2 RNA Rapid BUFFY Negative Result Diagrams: 03/24/21 12:29 03/24/21 12:29 Sepsis Event Note - Evaluation Sepsis Screening Result: No Definite Risk - Focused Exam Vital Signs: Vital Signs Temp Pulse Resp BP Pulse Ox 03/24/21 11:47 97.8 F 86 15 125/88 97 03/24/21 11:38 97.8 F 86 15 125/88 97 *Q Meaningful Use (ADM) - VTE Risk Assess *Q Each Risk Factor Represents 1 Point: Age 41 - 59 years Total Score 1 Point Risk Factors: 1 Each Risk Factor Represents 2 Points: None Total Score 2 Point Risk Factors: 0 Each Risk Factor Represents 3 Points: None Total Score 3 Point Risk Factors: 0 Each Risk Factor Represents 5 Points: None Total Score 5 Point Risk Factors: 0 Venous Thromboembolism Risk Factor Score *Q: 1 Problem List Initiated/Reviewed/Updated: Yes Orders Last 24hrs: Active Orders 24 hr Category Date Time Status Patient Status Manage Transfer [TRANSFER] Routine ADT 03/24/21 14:51 Ordered Lactated Ringers [Ringers, Lactated] 1,000 ml Med 03/24/21 14:15 Active IV ASDIRECTED Sodium Chloride 0.9% [Normal Saline] 81 ml Med 03/24/21 12:45 Active IV ASDIRECTED Sodium Chloride 0.9% [Saline Flush] Med 03/24/21 12:16 Active 10 ml FLUSH ASDIRECTED PRN Saline Lock Insert [OM.PC] Routine Oth 03/24/21 12:16 Ordered Resuscitation Status Routine Resus Stat 03/24/21 14:54 Ordered Medication Orders Sodium Chloride (Normal Saline) 81 mls @ 3.5 mls/sec IV ASDIRECTED MEDINA Stop: 03/24/21 18:00 Last Admin: 03/24/21 12:56 Dose: 3.5 mls/sec Documented by: RICH Lactated Ringer's (Ringers, Lactated) 1,000 mls @ 150 mls/hr IV ASDIRECTED MEDINA Last Admin: 03/24/21 14:11 Dose: 150 mls/hr Documented by: BRANDYN Sodium Chloride (Sodium Chloride 0.9% 10 Ml Syringe) 10 ml FLUSH ASDIRECTED PRN PRN Reason: Keep Vein Open Last Admin: 03/24/21 12:39 Dose: 10 ml Documented by: Admin: 03/24/21 12:37 Dose: 10 ml Documented by: ANA LAURA Assessment/Plan Comment:: ASSESSMENT AND PLAN ACUTE APPENDICITIS-abrupt onset of symptoms earlier this morning. Right lower quadrant abdominal pain with associated nausea. CT scan of the abdomen pelvis shows evidence of acute appendicitis -N.p.o. -Pain and nausea medication as needed -IV fluids for hydration -Meropenem 1 g IV every 8 hours -Surgical consult Dr. Chew HISTORY OF ASTHMA-relatively mild -Nebulizer therapy as needed MAINTENANCE ISSUES -DVT prophylaxis; SCUDs -GI prophylaxis; not indicated -Castillo catheter; not indicated -Nutrition; n.p.o. -Nicotine dependence; not required CODE STATUS-FULL CODE ADMISSION STATUS-patient will be admitted to inpatient status, expect at least a 2 night hospital stay for evaluation and management of problems as outlined above. At the time of this admission I do not reasonably expected evaluation and management of this problem will require more than a 96 hour hospital stay. DISPOSITION-anticipate discharge to home after the hospital stay. PRIMARY CARE PROVIDER-Silke Waddell - Mortality Measure Prognosis:: Good
[2021-03-24] MEDS ORDERED: Sodium Chloride 0.9% 10 ML Syringe FLUSH PRN (16:19)
[2021-03-24] MEDS ORDERED: HYDROCORTISONE 2.5% TOP PRN (16:19)
[2021-03-24] MEDS ORDERED: CLOTRIMAZOLE 1% TOP PRN (16:19)
[2021-03-24] MEDS ORDERED: Albuterol 8 GM Inhaler INH PRN (16:19)
[2021-03-24] MEDS ORDERED: Acetaminophen 325 MG Tab PO PRN (16:19)
[2021-03-24] MEDS: HYDROmorphone 0.5 MG/0.5 ML Syringe IVPUSH PRN ×3 (17:12→22:15)
[2021-03-24] MEDS: Dextrose 5%-Lactated Ringers 1,000 ML IV SCH (20:11)
[2021-03-24] MEDS: traZODone 50 MG Tab PO SCH ×2 (22:36→22:39)
[2021-03-24] MEDS: busPIRone 10 MG Tab PO SCH ×2 (22:36→22:39)
[2021-03-25] MEDS: HYDROmorphone 0.5 MG/0.5 ML Syringe IVPUSH PRN ×3 (00:28→05:39)
[2021-03-25] MEDS: Dextrose 5%-Lactated Ringers 1,000 ML IV SCH ×3 (04:11→20:05)
[2021-03-25] MEDS ORDERED: Meropenem 500 MG SDV ONE ×2 (06:15→07:01)
[2021-03-25] MEDS ORDERED: Bupivacaine 0.5%/EPINEPHrine 1:200,000 50 ML MDV ONE (06:15)
[2021-03-25] MEDS ORDERED: Glycopyrrolate 0.2 MG/ML 5 ML MDV ONE (07:22)
[2021-03-25] MEDS ORDERED: Neostigmine Methylsulfate 1 MG/ML 5 ML Syringe ONE (07:22)
[2021-03-25] MEDS ORDERED: Succinylcholine 200 MG/10 ML MDV ONE (07:22)
[2021-03-25] MEDS ORDERED: Dexamethasone 4 MG/ML SDV ONE (07:22)
[2021-03-25] MEDS ORDERED: Rocuronium 50 MG/5 ML Vial ONE (07:22)
[2021-03-25] MEDS ORDERED: Ondansetron 4 MG/2 ML SDV ONE (07:22)
[2021-03-25] MEDS ORDERED: Propofol 200 MG/20 ML SDV ONE (07:22)
[2021-03-25] MEDS ORDERED: fentaNYL 250 MCG/5 ML SDV ONE (07:24)
[2021-03-25] MEDS ORDERED: Ropivacaine 40 ML, dexAMETHasone 8 MG, EPINEPHrine 0.4 MG, Sodium Chloride 0.9% 37.6 ML NERVRT SCH ×4 (07:30)
[2021-03-25] MEDS ORDERED: cefOXitin 2 GM in Sodium Chloride 0.9% 50 ML IV ONE (07:30)
[2021-03-25] MEDS ORDERED: Lactated Ringers 1,000 ML ONE (08:00)
[2021-03-25] MEDS ORDERED: fentaNYL 100 MCG/2 ML SDV ONE ×2 (08:02→08:13)
[2021-03-25] MEDS ORDERED: diphenhydrAMINE 25 MG Cap PO PRN (08:16)
[2021-03-25] MEDS ORDERED: diphenhydrAMINE 50 MG/ML SDV IVPUSH PRN (08:16)
[2021-03-25] MEDS ORDERED: Ondansetron 4 MG/2 ML SDV IVPUSH PRN (08:16)
[2021-03-25] MEDS ORDERED: Naloxone 0.4 MG/ML SDV IVPUSH PRN (08:16)
[2021-03-25] MEDS: HYDROmorphone/Normal Saline 15 MG/30 ML PCA IV PRN (08:45)
[2021-03-25] MEDS ORDERED: Labetalol 20 MG/4 ML Syringe ONE (08:53)
[2021-03-25] MEDS: busPIRone 10 MG Tab PO SCH ×2 (11:10→20:28)
[2021-03-25] MEDS: Ondansetron 4 MG/2 ML SDV IV PRN ×2 (11:11→20:05)
[2021-03-25] MEDS ORDERED: Albuterol/Ipratropium 3.0-0.5 MG/3 ML Neb Soln INH PRN (11:13)
[2021-03-25] MEDS ORDERED: hydrOXYzine HCL 100 MG/2 ML SDV IM PRN (11:19)
[2021-03-25] MEDS: Pantoprazole 40 MG Vial IV SCH (13:25)
[2021-03-25] MEDS: cefOXitin 2 GM in Sodium Chloride 0.9% 50 ML IV SCH ×2 (13:37→20:20)
[2021-03-25] MEDS: Acetaminophen 500 MG Tab PO SCH ×2 (13:38→21:34)
[2021-03-25] MEDS ORDERED: Meropenem 1 GM in Sodium Chloride 0.9% 100 ML IV SCH (14:00)
[2021-03-25] MEDS: Albuterol/Ipratropium 3.0-0.5 MG/3 ML Neb Soln INH SCH ×3 (14:34→20:36)
[2021-03-25] MEDS: traZODone 50 MG Tab PO SCH (20:29)
[2021-03-26] MEDS: cefOXitin 2 GM in Sodium Chloride 0.9% 50 ML IV SCH ×4 (02:34→19:58)
[2021-03-26] MEDS: Acetaminophen 500 MG Tab PO SCH ×5 (02:37→19:59)
[2021-03-26] MEDS: Albuterol/Ipratropium 3.0-0.5 MG/3 ML Neb Soln INH SCH ×4 (07:07→21:04)
[2021-03-26] MEDS: Dextrose 5%-Lactated Ringers 1,000 ML IV SCH ×2 (08:06→18:33)
[2021-03-26] MEDS: HYDROmorphone/Normal Saline 15 MG/30 ML PCA IV PRN (09:11)
[2021-03-26] MEDS: busPIRone 10 MG Tab PO SCH ×2 (10:32→21:04)
[2021-03-26] MEDS: Bisacodyl 5 MG Tab PO SCH ×2 (10:36→21:00)
[2021-03-26] MEDS: Docusate Sodium 100 MG Cap PO SCH ×2 (10:36→21:00)
[2021-03-26] MEDS: Pantoprazole 40 MG Vial IV SCH (13:46)
[2021-03-26] MEDS: Ondansetron 4 MG/2 ML SDV IV PRN (18:29)
[2021-03-26] MEDS: traZODone 50 MG Tab PO SCH (21:04)
[2021-03-27] MEDS: Acetaminophen 500 MG Tab PO SCH ×4 (02:08→19:45)
[2021-03-27] MEDS: cefOXitin 2 GM in Sodium Chloride 0.9% 50 ML IV SCH ×4 (02:12→19:45)
[2021-03-27] MEDS ORDERED: Propofol 200 MG/20 ML SDV ONE ×2 (07:00→07:21)
[2021-03-27] MEDS ORDERED: Bupivacaine 0.5% 50 ML MDV ONE (07:09)
[2021-03-27] MEDS ORDERED: Meropenem 500 MG SDV ONE (07:09)
[2021-03-27] MEDS ORDERED: Lidocaine 1% with EPINEPHrine 1:100,000 50 ML MDV ONE (07:09)
[2021-03-27] MEDS ORDERED: Meropenem 500 MG SDV IRR ONE (07:10)
[2021-03-27] MEDS ORDERED: Bupivacaine 0.5% 30 ML SDV INJECT ONE (07:10)
[2021-03-27] MEDS ORDERED: Lidocaine 1% with EPINEPHrine 1:100,000 50 ML MDV INJECT ONE (07:10)
[2021-03-27] MEDS ORDERED: Ciprofloxacin in D5W 400 MG in Premix Bag 1 BAG IV SCH ×2 (07:15)
[2021-03-27] MEDS ORDERED: Ropivacaine 40 ML, dexAMETHasone 8 MG, EPINEPHrine 0.4 MG, Sodium Chloride 0.9% 37.6 ML NERVRT SCH ×4 (07:15)
[2021-03-27] MEDS: Albuterol/Ipratropium 3.0-0.5 MG/3 ML Neb Soln INH SCH ×4 (07:36→20:00)
[2021-03-27] MEDS: Calcium Carbonate 500 MG Tab.Chew PO PRN ×2 (08:33→19:54)
--- NOTE | 2021-03-27 08:50 | PN ---
DATE OF SERVICE: 03/27/2021 SUBJECTIVE: Esequiel is n.p.o., and he will be having a delayed primary closure this morning. Vital signs have been stable. Oral intake prior to delayed primary closure is 520. Urine output via Castillo catheter is 2175. GAGAN drain put out 45 mL of a light red drainage. His wound culture grew out viridans streptococcus. REVIEW OF SYSTEMS: The remainder of the review of systems is negative for any pertinent positives or negatives. He did request some Tums for acid reflux. OBJECTIVE: GENERAL: Esequiel is a 45-year-old male. He is alert and orientated. VITAL SIGNS: TPR 97.9, 69, and 16 and blood pressure 128/72. HEENT: Negative. NECK: Supple. HEART: Regular rate and rhythm. LUNGS: Clear. ABDOMEN: Dressing is dry and intact. An abdominal binder is on. EXTREMITIES: Without peripheral edema. ASSESSMENT: Exploratory laparoscopic turned to laparotomy for right colon resection with omentectomy, drainage of a pericolonic abscess, and appendectomy. PLAN: Orders are to be written after delayed primary closure, which include Tums 1000 mg every 2 hours. We will evaluate p.r.n. or in the a.m. Evie Nixon PA-C /[id number]
[2021-03-27] MEDS: busPIRone 10 MG Tab PO SCH ×3 (09:56→20:03)
[2021-03-27] MEDS: Bisacodyl 5 MG Tab PO SCH ×2 (09:56→20:00)
[2021-03-27] MEDS: Docusate Sodium 100 MG Cap PO SCH ×2 (09:57→20:00)
[2021-03-27] MEDS: Pantoprazole 40 MG Vial IV SCH (11:15)
--- NOTE | 2021-03-27 12:44 | PN ---
DATE OF SERVICE: 03/26/2021 The patient has been afebrile with stable vital signs. Urine output has been satisfactory. He is complaining of a little bit more pain than would be optimal, and given this, we will bump up his [employer] demand dose from 0.3 to 0.4 mg with a 10-minute lockout. Otherwise, plan to proceed with a delayed primary closure tomorrow. Cultures are growing out some bacteria on the aerobic cultures which are being subcultured at this point. We will continue the present antibiotics. Rey Chew MD /[id number]
[2021-03-27] MEDS: Dextrose 5%-Lactated Ringers 1,000 ML IV SCH (13:36)
[2021-03-27] MEDS: HYDROmorphone/Normal Saline 15 MG/30 ML PCA IV PRN (14:48)
[2021-03-27] MEDS: traZODone 50 MG Tab PO SCH (20:00)
[2021-03-28] MEDS: Acetaminophen 500 MG Tab PO SCH ×4 (02:36→20:03)
[2021-03-28] MEDS: cefOXitin 2 GM in Sodium Chloride 0.9% 50 ML IV SCH ×4 (02:36→19:55)
[2021-03-28] MEDS: Calcium Carbonate 500 MG Tab.Chew PO PRN (04:45)
[2021-03-28] MEDS: Albuterol/Ipratropium 3.0-0.5 MG/3 ML Neb Soln INH SCH ×4 (07:21→20:00)
[2021-03-28] MEDS ORDERED: Pantoprazole 40 MG Tab.CR PO SCH (07:30)
[2021-03-28] MEDS: Pantoprazole 40 MG Vial IVPUSH SCH ×2 (07:48→20:02)
[2021-03-28] MEDS: HYDROmorphone 2 MG Tab PO PRN ×3 (08:05→18:38)
[2021-03-28] MEDS ORDERED: Dextrose 5%-Lactated Ringers 1,000 ML IV SCH (08:15)
[2021-03-28] MEDS ORDERED: Pantoprazole 40 MG Vial IVPUSH SCH (09:00)
[2021-03-28] MEDS: busPIRone 10 MG Tab PO SCH ×2 (09:19→20:03)
--- NOTE | 2021-03-28 12:19 | PN ---
DATE OF SERVICE: 03/28/2021 SUBJECTIVE: Esequiel's vital signs have been stable. Oral intake 1100. Urine output independently. He has had 7 bowel movements in the past 24 hours. REVIEW OF SYSTEMS: Remainder of review of systems negative for any pertinent positives and negatives. OBJECTIVE: GENERAL: Esequiel is a 45-year-old male. VITAL SIGNS: TPR is 96.7, 77, 16, blood pressure 143/79. HEENT: Negative. NECK: Supple. HEART: Regular rate and rhythm. LUNGS: Clear. ABDOMEN: Dressings dry and intact. Abdominal binder is on. EXTREMITIES: Without peripheral edema. ASSESSMENT: 1. Exploratory laparoscopy turned to laparotomy for right colon resection with omentectomy, drainage of pericolonic abscess and appendectomy. Date of procedure: 03/25/2021. 2. Delayed primary closure, 03/27/2021. Surgeon: Rey Chew MD. PLAN: 1. Discontinue bowel stimulation, Colace, Entereg, and Dulcolax. 2. Discontinue PROCUREMENT AGENT and continuous pulse ox. 3. Dilaudid 2 to 4 mg every 4 hours p.r.n. pain. 4. Protonix IV 40 mg b.i.d. for heartburn. 5. IV rate decreased to TKO. 6. May shower. 7. We will evaluate p.r.n. or in a.m. and plan discharge in a.m. Evie Nixon PA-C /[id number]
[2021-03-28] MEDS: traZODone 50 MG Tab PO SCH (20:03)
[2021-03-29] MEDS: HYDROmorphone 2 MG Tab PO PRN ×2 (00:05→04:36)
[2021-03-29] MEDS: cefOXitin 2 GM in Sodium Chloride 0.9% 50 ML IV SCH ×2 (02:41→07:58)
[2021-03-29] MEDS: Acetaminophen 500 MG Tab PO SCH ×2 (04:34→07:59)
[2021-03-29] MEDS: Albuterol/Ipratropium 3.0-0.5 MG/3 ML Neb Soln INH SCH (06:59)
[2021-03-29] MEDS ORDERED: oxyCODONE 5 MG Tab PO PRN (07:12)
[2021-03-29] MEDS: busPIRone 10 MG Tab PO SCH (07:59)
[2021-03-29] MEDS: Pantoprazole 40 MG Vial IVPUSH SCH (08:04)
[2021-03-29] MEDS ORDERED: Phenazopyridine 95 MG Tab PO SCH (09:00)
--- NOTE | 2021-03-29 11:52 | DISCH ---
ADMISSION DIAGNOSES: 1. Abdominal pain. 2. Acute appendicitis. 3. Asthma. 4. Gastroesophageal reflux disease. 5. Anxiety. DISCHARGE DIAGNOSES: 1. Exploratory laparoscopic turned to laparotomy for right colon resection with omentectomy, drainage of pericolonic abscess and appendectomy. Date of procedure 03/25/2021. 2. Delayed primary closure 03/27/2021. 3. Surgeon: Rey Chew MD. HISTORY: Esequiel Goel is a pleasant 45-year-old male who presented to the emergency room with abdominal pain. After preoperative evaluation and discussion of possible risks and possible complications, he wished to proceed with surgical procedure. HOSPITAL COURSE: Esequiel had his surgery on 03/25/2021 with delayed primary closure on 03/27/2021. He had no operative complications. He remained n.p.o. until he started having bowel movements and the diet was advanced to regular diet. His stool stimulation was stopped. Pain was controlled with TRAMPOLINE TEAM COACH initially and then he was switched to oral pain medication. He was able to be discharged to home on 03/29/2021 with no complications. PHYSICAL EXAMINATION: GENERAL: Esequiel is a 45-year-old male. VITAL SIGNS: Height 6 feet 1 inch, weight is 182 pounds. TPR; 99.5, 107, 16. Blood pressure is 132/74. HEENT: Negative. NECK: Supple. HEART: Regular rate and rhythm. LUNGS: Clear. ABDOMEN: Aquacel dressing is on and abdominal binder is on. EXTREMITIES: Without peripheral edema. NEUROLOGIC: Intact. PSYCHIATRIC: Mood and affect appropriate. UA is still pending at the time of dictation for reports of some dysuria. DISPOSITION: Discharged to home. CONDITION: Stable and improving. FOLLOWUP APPOINTMENT: Rey Chew MD on 04/05/2021 at 9 a.m. HOME MEDICATIONS: Oxycodone 5 mg q.4 hours p.r.n. pain, #12; Pyridium or phenazopyridine urinary pain relief 95 mg p.o. 3 times a day, #9. He is to resume his home medications; Tylenol Extra Strength 1000 mg q.6 hours p.r.n. pain, BuSpar 10 mg p.o. b.i.d., Ventolin inhaler 1 to 2 puffs q.4 hours, trazodone 50 mg at bedtime, hydrocortisone 1% topical daily p.r.n., and Proctozone HC 2.5% cream use as directed p.r.n. DIET: Usual diet as tolerated. Drink 8 to 10 glasses of water a day. ACTIVITY: As tolerated. No lifting greater than 10 pounds for 4 to 6 weeks. Driving: Do not drive while taking oxycodone. Shower/bathing: May shower. Wound incision care: Keep operative site clean and dry. Wear abdominal binder for 6 weeks if tolerated. Take off Aquacel dressing in 3 days on 04/01/2021. /[id number]
--- NOTE | 2021-04-03 12:28 | OR ---
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 POSTOPERATIVE DIAGNOSES: 1. 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 2. Pelvic and pericolonic abscess. 3. Segment of omentum adherent to area of ileocecal valve and appendix. OPERATIVE PROCEDURE: 1. Exploratory laparotomy with: a. Right colectomy (02013). b. Drainage of pelvic and pericolonic abscess (45334). c. Partial omentectomy (38476). d. Mobilization of omentum into pelvis to displace small bowel from pelvis in the event of requirement for postoperative radiation treatment. INDICATIONS FOR PROCEDURE: This 45-year-old male presenting with what appeared to be an appendicitis. The patient already has a chronic mucocele. This was diagnosed in August of this year and the patient has had some ongoing intermittent right lower quadrant pain associated with that. He was seen at both [facility] and [facility] in the [place] area and in both cases he was advised that this could represent a malignancy of the appendix or cecum overlying the appendiceal orifice. He was advised to undergo a colonoscopy, but for various reasons, he did not have that performed. He presents now with a picture of somewhat more of a superimposed appendicitis. After discussion of the treatment options with the patient and his mother, who was also present, they firmly agreed with the idea that we should approach this as a potential malignancy, and do a cancer type operation, i.e., right colectomy with significant lymph nodes rather than a simple appendectomy, which could potentially result in spill of tumor cells intraperitoneally. Potential risks of the procedure including bleeding, infection, local or distant recurrence of tumor, problems with the anastomotic leaks, as well as the remote possibility of cardiopulmonary, septic, or hemorrhagic complications leading to were discussed, and the patient wishes to proceed. With the underlying infectious process likely superimposed, an epidural catheter will not be used, but rather we will use the enhanced recovery approach due to the patient's colon resection. DETAILS OF PROCEDURE: The patient was taken to the operating room, and after general endotracheal anesthesia was induced, a Castillo catheter was inserted and the abdomen prepped and draped. A low oblique right-sided incision parallel with the costal margin was then made and carried down through the skin and subcutaneous tissue and through the full thickness of the abdominal wall. Upon entering the peritoneal cavity, it became evident that the patient had what appeared to have developed a perforation of the appendix with this now being decompressed. There was, however, significant pericolonic abscess which extended down into the pelvis. Cultures of this were obtained and that abscess was then evacuated. Cytology was obtained from the pelvis as well with some saline washings being added to the area. At this point, the peritoneum of the distal small bowel, cecum, and ascending colon were divided, and the cecum and the ascending colon had been mobilized medially. The right ureter and duodenum were identified. The small bowel was then divided few centimeters proximal to the ileocecal valve with ANNELISE stapler and the colon divided just to the right of the middle colic vessels with a ANNELISE stapler as well. The mesentery in between the 2 points was then divided with ANNELISE chelsy with care taken to remove what appeared to be otherwise somewhat enlarged lymph nodes along the ileocolic chain. Of note, there did not appear to be more proximal lymphadenopathy within the superior mesenteric artery or periaortic area and there was no peritoneal implant tumor or problems such as liver metastasis seen on the generalized exam. After delivery of the specimen, the ileocolic anastomosis was accomplished with 2 internal firings of the ANNELISE pedroza load, followed by closure of the common opening with purple loads. The angles anastomosed and reinforced with some 3-0 Vicryl stitch, which was also used to close the mesenteric defect. The omentum had been quite adherent to the area of involvement, and prior to resection, segment of this was divided away from the remainder of the omentum so as to not violate what might be some omentum adherent to potential tumor versus the inflammatory response. The omentectomy was likewise accomplished with surgical chelsy and the specimen at the end of the procedure was sent separately as a specimen. At this point, the abdomen was irrigated with meropenem-containing saline solution. . A single Jose Angel-Bhakta drain was then placed through the right flank area, taken across the area of the anastomosis along the pericolic gutter and into the pelvis. The posterior peritoneum was then approximated with #2 Vicryl stitch and the anterior fascia was then likewise closed with a #2 Vicryl stitch. Skin and subcutaneous tissue were felt to be high risk for wound infection if primary closure was undertaken. Given this, these were packed open for a planned delayed primary closure in 48 hours. The patient was taken to the recovery room in a satisfactory condition. Rey Chew MD /[id number]
--- NOTE | 2021-04-03 13:23 | OR ---
DATE OF PROCEDURE: 03/27/2021 SURGEON: Rey Chew MD PREOPERATIVE DIAGNOSIS: Open abdominal incision. POSTOPERATIVE DIAGNOSIS: Open abdominal incision. PROCEDURE PERFORMED: Delayed primary closure of open abdominal incision. ANESTHESIA: IV sedation plus local. INDICATIONS FOR PROCEDURE: The patient is 48 hours status post an open laparotomy with right colectomy. There was some intrinsic contamination of the incision at that time, and given this, the skin and subcutaneous tissue were left open to limit wound infection . The plan is to proceed with delayed primary closure at this time. Potential risks including bleeding and infection were reviewed, and the patient wishes to proceed. DETAILS OF PROCEDURE: The patient was taken to the operating room and placed in a left lateral decubitus position. IV sedation was administered after which the operative dressing was taken down and the wound inspected and found to be clean. The wound was then prepped and draped. Using ultrasound guidance, bilateral transversus abdominis plane blocks were then placed, and the incision was irrigated with meropenem-containing saline solution. The incision was closed with some 3-0 and 4-0 Vicryl stitch deep and then chelsy for the skin. A dressing was applied. The patient was taken to the recovery room in satisfactory condition. Rey Chew MD /[id number]
== END 2021-03-29 11:24 | disposition home or self-care (01) | DRG 329 ==
LOC: JP.ED 11:07 → JP.MS 14:51
PROVIDERS: ADMIT Hospitalist; ATTEND Surgery
PROC: 0DTF0ZZ Resection of Right Large Intestine, Open Approach (ICD-10-PCS; principal; 2021-03-25)
PROC: 0W9J0ZZ Drainage of Pelvic Cavity, Open Approach (ICD-10-PCS; 2021-03-25)
PROC: 0DBU0ZZ Excision of Omentum, Open Approach (ICD-10-PCS; 2021-03-25)
PROC: 0WQF0ZZ Repair Abdominal Wall, Open Approach (ICD-10-PCS; 2021-03-27)
DX: K35.33 Acute appendicitis with perforation, localized peritonitis, and gangrene, with abscess (principal); K55.069 Acute infarction of intestine, part and extent unspecified; J45.909 Unspecified asthma, uncomplicated; K21.9 Gastro-esophageal reflux disease without esophagitis; F41.9 Anxiety disorder, unspecified; Z20.822 Contact with and (suspected) exposure to COVID-19; Z88.1 Allergy status to other antibiotic agents; Z91.048 Other nonmedicinal substance allergy status; Z91.018 Allergy to other foods; Z91.010 Allergy to peanuts; Z88.8 Allergy status to other drugs, medicaments and biological substances; Z79.899 Other long term (current) drug therapy
CPT/HCPCS: 36415; 74177; 74177-26; 80048; 80053; 81001; 83735; 85025; 86140; 87070; 87075; 87077; 87205; 88112; 88305; 88307; 94640; 94762; 96374; 96375; 96376; 99284; 99285-25; A9270-GY; C9113; J0171; J0330; J0694; J1100; J1170; J1335; J2020; J2185; J2405; J2704; J2710; J2795; J3010; J3490; J7030; J7120; J7121; J7620-GY; Q9967; U0002

== ENCOUNTER 2021-04-05 14:50 | Emergency (ER) | payer MEDICAID ==
--- NOTE | 2021-04-05 17:11 | EDM.PDOC ---
ED HPI GENERAL MEDICAL PROBLEM - General Chief Complaint: Back Pain or Injury Stated Complaint: BACK PAIN Time Seen by Provider: 04/05/21 15:55 Source of Information: Reports: Patient History Limitations: Reports: No Limitations - History of Present Illness INITIAL COMMENTS - FREE TEXT/NARRATIVE: 45-year-old male with a sudden onset of right flank pain 5 hours ago. He was into the clinic to get his chelsy removed and reevaluated after an abdominal surgery 2 weeks ago. Shortly after he got home he developed fairly sudden right-sided flank pain and abdominal pain but no nausea or vomiting. No fevers or chills. He took an oxycodone at about 1230, call the clinic and they told him to take some Tylenol but he did not do that because the oxycodone was not working so he figured the Tylenol would not either. They then told him to go to the emergency room. He has some persistent diarrhea but is C. difficile negative. He looks comfortable at this time. Onset: Sudden (Fairly suddenly 4 hours ago) Duration: Hour(s): (4 hours) Location: Reports: Back (Right flank and right abdomen) Associated Symptoms: Denies: Chest Pain, Cough, Fever/Chills, Headaches, Malaise, Shortness of Breath, Weakness Back Pain Score (Numeric/FACES): 8 - Related Data Allergies Allergy/AdvReac Type Severity Reaction Status Date / Time ciprofloxacin [From Cipro] Allergy Severe Anaphylactic Verified 04/05/21 15:51 Shock coconut oil Allergy Severe Airway Verified 04/05/21 15:51 Tightness sunflower oil Allergy Severe Airway Verified 04/05/21 15:51 Tightness NSAIDS (Non-Steroidal Allergy Seizure Verified 04/05/21 15:51 Anti-Inflamma Penicillins Allergy Bleeding Verified 04/05/21 15:51 polyethylene glycol 3350 AdvReac Severe Difficulty Verified 04/05/21 15:51 [From Miralax] Swallowing psyllium [From Metamucil] AdvReac Severe Difficulty Verified 04/05/21 15:51 Swallowing apples Allergy Severe Anaphylactic Uncoded 04/05/21 15:51 Shock celery Allergy Severe Airway Uncoded 04/05/21 15:51 Tightness cherries Allergy Severe Airway Uncoded 04/05/21 15:51 Tightness peaches Allergy Severe Airway Uncoded 04/05/21 15:51 Tightness peanuts Allergy Severe Anaphylactic Uncoded 04/05/21 15:51 Shock pumpkins Allergy Severe Airway Uncoded 04/05/21 15:51 Tightness aloe vera Allergy Hives Uncoded 04/05/21 15:51 Home Meds: Home Meds Albuterol [Ventolin HFA] 1 - 2 puff INH Q4H PRN 11/15/18 [History] Clotrimazole [Lotrimin AF 1% Crm] 1 gm TOP DAILY 03/24/21 [History] Hydrocortisone 1 gm TOP DAILY PRN 03/24/21 [History] traZODone HCl [Trazodone HCl] 50 mg PO BEDTIME 03/24/21 [History] Acetaminophen [Tylenol Extra Strength] 1,000 mg PO Q6H tablet 03/29/21 [Rx] oxyCODONE 5 mg PO Q4H PRN #12 tablet 03/29/21 [Rx] Past Medical History Respiratory History: Reports: Asthma Gastrointestinal History: Reports: Bowel Obstruction, GERD Neurological History: Reports: Concussion, Head Trauma, Seizure Psychiatric History: Reports: Anxiety - Infectious Disease History Infectious Disease History: Reports: C-Difficile, Chicken Pox, Influenza - Past Surgical History GI Surgical History: Reports: Appendectomy, Hernia, Inguinal Musculoskeletal Surgical History: Reports: Other (See Below) Other Musculoskeletal Surgeries/Procedures:: 2019 elbow surgery Social & Family History - Tobacco Use Tobacco Use Status *Q: Former Tobacco User Used Tobacco, but Quit: Yes Month/Year Tobacco Last Used: 2018 - Caffeine Use Caffeine Use: Reports: None - Recreational Drug Use Recreational Drug Use: No ED ROS GENERAL - Review of Systems Review Of Systems: See Below Constitutional: Denies: Fever, Chills HEENT: Reports: No Symptoms Respiratory: Denies: Shortness of Breath, Pleuritic Chest Pain Cardiovascular: Denies: Chest Pain GI/Abdominal: Reports: Abdominal Pain, Diarrhea. Denies: Constipation, Nausea, Vomiting Musculoskeletal: Reports: Back Pain Skin: Reports: Bruising (Normal postoperative bruising) Neurological: Reports: No Symptoms Psychiatric: Reports: No Symptoms ED EXAM, GENERAL - Physical Exam Exam: See Below Exam Limited By: No Limitations General Appearance: Alert, No Apparent Distress, Other (Looks comfortable at this time) Eye Exam: Bilateral Eye: Normal Inspection (No jaundice) Head: Atraumatic Neck: Supple, Non-Tender Respiratory/Chest: Lungs Clear Cardiovascular: Regular Rate, Rhythm GI/Abdominal: Soft, Other (Wearing a postsurgical abdominal binder, this was not removed) Back Exam: Normal Inspection. No: CVA Tenderness (R), CVA Tenderness (L) Extremities: No: Pedal Edema Neurological: Alert, Oriented, No Motor/Sensory Deficits Psychiatric: Normal Affect, Normal Mood Skin Exam: Warm, Dry Course - Vital Signs Last Recorded V/S: Last Vital Signs Temp 98.0 F 04/05/21 15:57 Pulse 82 04/05/21 15:57 Resp 16 04/05/21 15:57 BP 142/87 H 04/05/21 15:57 Pulse Ox 97 04/05/21 15:57 - Re-Assessments/Exams Free Text/Narrative Re-Assessment/Exam: 04/05/21 17:10 Patient cannot take any anti-inflammatories because he will have a "seizure". CT of the abdomen and pelvis without contrast was obtained to rule out any possibility of a right obstructing renal stone. This is pending, patient remained apparently comfortable. 04/05/21 17:54 CT scan showed no obstructing uropathy or significant inflammatory changes. There was a small amount of uncinate inflammation around the pancreas but that did not correlate with his symptoms. His pain was still in the right deep back, with flank area and hurt with movement. He was discharged with some Flexeril to take as needed, and can increase activity as tolerated. Departure - Departure Time of Disposition: 18:06 Disposition: Home, Self-Care 01 Clinical Impression: Acute right flank pain - Discharge Information Instructions: Flank Pain, Adult, [id number] Referrals: Silke Michel [facility] [employer] [facility] [Primary Care Provider] - Forms: ED Department Discharge Care Plan Goals: Continue with oxycodone and Tylenol, add Flexeril as needed and increase activity as tolerated. Heating pad to the right flank may be helpful as well. Gentle stretching, and return anytime if worsening such as fever, increased abdominal pain or nausea and vomiting. Sepsis Event Note (ED) - Evaluation Sepsis Screening Result: No Definite Risk
--- NOTE | 2021-04-05 17:46 | CRLCT ---
For Patients: As a result of the Century Cures Act, medical imaging exams and procedure reports are released immediately into your electronic medical record. You may view this report before your referring provider. If you have questions, please contact your health care provider. INDICATION: Right flank pain. TECHNIQUE: CT abdomen and pelvis without contrast. COMPARISON: CT abdomen/pelvis dated 03/24/2021. FINDINGS: Lower chest: No focal consolidation. Evaluation of solid organs is limited secondary to lack of IV contrast administration. Liver: Too small to characterize hypodense hepatic lesions, likely benign in the absence of a known malignancy. Gallbladder and bile ducts: Gallbladder is decompressed, suboptimally evaluated. Pancreas: Mild amount of inflammatory stranding adjacent to the uncinate process of the pancreas, tracking inferiorly along the superior mesenteric vein. Spleen: Unremarkable. Adrenal glands: Unremarkable. Kidneys: No hydronephrosis bilaterally. No calculi identified in the bilateral renal collecting systems. Retroperitoneum: No lymphadenopathy. Bowel and mesentery: Bowel is nonobstructed. Scattered colonic diverticulosis, without evidence of acute diverticulitis. Stable sequelae of epiploic appendagitis along the descending colon. Postsurgical changes from interval appendectomy. Bladder: Small focus of nondependent air within the urinary bladder, query history of recent instrumentation/catheterization. Reproductive organs: Mild prostatomegaly. Pelvic lymph nodes: No lymphadenopathy. Vessels: Unremarkable for unenhanced study. Abdominal wall: Postsurgical changes in the right lower quadrant ventral abdominal wall. Bones: No suspicious/aggressive focal osseous lesion. Bones are osteopenic. IMPRESSION: 1. Mild amount of inflammatory stranding adjacent to the uncinate process of the pancreas, worrisome for focal pancreatitis. Recommend correlation with serum amylase/lipase. 2. No calculi identified in the bilateral renal collecting systems. No hydronephrosis bilaterally. 3. Postsurgical changes from interval appendectomy. Nonobstructed bowel. 4. Small focus of nondependent air within the urinary bladder, query history of recent instrumentation/catheterization. Please note that all CT scans at this facility use dose modulation, iterative reconstruction, and/or weight-based dosing when appropriate to reduce radiation dose to as low as reasonably achievable. Dictated by Yvon Green MD @ 04/05/2021 5:45:[address] Yvon Green @ Apr 05 2021 5:45PM
== END 2021-04-05 18:07 | disposition home or self-care (01) ==
LOC: JP.ED 14:50
DX: R10.9 Unspecified abdominal pain (principal); Z88.1 Allergy status to other antibiotic agents; Z91.018 Allergy to other foods; Z88.0 Allergy status to penicillin; Z91.010 Allergy to peanuts; Z87.891 Personal history of nicotine dependence
CPT/HCPCS: 74176; 99284-25

== ENCOUNTER 2024-04-15 12:03 | Emergency (ER) | payer MEDICAID ==
[2024-04-15 14:26] LABS: CREATININE 1.1 mg/dL (0.7-1.3); EST CRCL DRUG DOSING (CG) 90.48 mL/min; ESTIMATED GFR 82 mL/min (>60)
[2024-04-15 14:27] LABS: BASOPHILS ABSOLUTE AUTO 0.03 K/uL (0.00-0.10); BASOPHILS PERCENT AUTO 0.7 % (0.1-1.3); EOSINOPHILS ABSOLUTE AUTO 0.02 K/uL (0.00-0.40); EOSINOPHILS PERCENT AUTO 0.4 % (0.0-5.4); HEMATOCRIT 44.8 % (38.4-49.7); HEMOGLOBIN 15.9 g/dL (12.9-16.9); IMMATURE GRAN ABSOLUTE AUTO 0.01 K/uL (0.00-0.23); IMMATURE GRAN PERCENT AUTO 0.2 % (0.0-0.7); LYMPHOCYTES ABSOLUTE AUTO 1.21 K/uL (0.8-3.3); LYMPHOCYTES PERCENT AUTO 27.2 % (11.4-47.7); MEAN CORPUSCULAR HEMOGLOBIN 32.9 pg (31.6-35.5); MEAN CORPUSCULAR HGB CONC 35.5 g/dL (31.6-35.5); MEAN CORPUSCULAR VOLUME 92.6 fL (81.4-99.0); MONOCYTES ABSOLUTE AUTO 0.29 K/uL (0.20-0.90); MONOCYTES PERCENT AUTO 6.5 % (3.3-12.6); NEUTROPHILS ABSOLUTE AUTO 2.89 K/uL (1.0-7.6); PLATELET COUNT,PLT 219 K/uL (130-375); RED BLOOD CELL COUNT 4.84 M/uL (4.14-5.76); WHITE BLOOD CELL COUNT,WBC 4.5 K/uL (3.2-11.0)
[2024-04-15 14:44] LABS: ANION GAP 14.3 mmol/L (5.0-14.0); BLOOD UREA NITROGEN,BUN 18 mg/dL (7-18); C-REACTIVE PROTEIN < 0.50 mg/dL (<0.50); CALCIUM 9.3 mg/dL (8.5-10.1); CARBON DIOXIDE,CO2 24 mmol/L (21-32); CHLORIDE,CL 101 mmol/L (100-108); GLUCOSE RANDOM 105 mg/dL (74-106); POTASSIUM,K 4.3 mmol/L (3.6-5.2); SODIUM,NA 135 mmol/L (140-148)
[2024-04-15] MEDS: Sodium Chloride 0.9% 80 ML IV SCH (14:46)
[2024-04-15] MEDS: Sodium Chloride 0.9% 10 ML Syringe FLUSH ONE (14:46)
[2024-04-15] MEDS: Iopamidol 612 MG/ML 100 ML Bottle IV SCH (14:46)
== END 2024-04-15 15:39 | disposition home or self-care (01) ==
LOC: JP.ED 12:03
DX: S39.011A Strain of muscle, fascia and tendon of abdomen, initial encounter (principal); E78.00 Pure hypercholesterolemia, unspecified; J45.909 Unspecified asthma, uncomplicated; Z91.018 Allergy to other foods; Z88.6 Allergy status to analgesic agent; Z88.0 Allergy status to penicillin; Z88.1 Allergy status to other antibiotic agents; Z88.8 Allergy status to other drugs, medicaments and biological substances; Z91.010 Allergy to peanuts; Z91.048 Other nonmedicinal substance allergy status; Z79.51 Long term (current) use of inhaled steroids; Z79.899 Other long term (current) drug therapy; X50.0XXA Overexertion from strenuous movement or load, initial encounter; Y93.89 Activity, other specified
CPT/HCPCS: 36415; 74177; 80048; 83605; 85025; 86140; 99284; J3490; Q9967